=== PATIENT | female | born 1945 | race Caucasian/White ===

== ENCOUNTER 2020-04-01 10:54 | Outpatient (RCR) | payer SELFPAY | END 2020-04-01 23:59 | disposition home or self-care (01) | LOC: ANHAUDIO 10:54 | DX: Z46.1 Encounter for fitting and adjustment of hearing aid (principal) | CPT/HCPCS: V5014 ==

== ENCOUNTER 2020-11-29 11:45 | Emergency (ER) | payer MEDICARE, SELFPAY ==
--- NOTE | ~2020-11-29 | XR_ITS ---
EXAMINATION: XR foot RT min 3V DATE: 11/29/2020 13:06 INDICATION: Redness, swelling, and pain of the right foot TECHNIQUE: Dorsoplantar, lateral, and 2 oblique views of the right foot were obtained. COMPARISON: None. FINDINGS: There is soft tissue swelling of the foot near the fifth metatarsophalangeal joint. No frac ture is identified. 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 Bone alig nment is normal. IMPRESSION: 1. Soft tissue swelling near the fifth metatarsophalangeal joint without acute osseous abnormality id entified. Reviewed, dictated and finalized at location B. IMPRESSION: 1. Soft tissue swelling near the fifth metatarsophalangeal joint without acute osseous abnormality identified.
--- NOTE | ~2020-11-29 | US_ITS ---
EXAMINATION: US venous doppler LE RT DATE: 11/29/2020 15:35 INDICATION: Right lower limb pain. TECHNIQUE: Grayscale ultrasound images without and with compression and Doppler ultrasound images of the right lower extremity veins were obtained. COMPARISON: None. FINDINGS: The visualized portions of right common femoral vein, profunda (deep) femoral vein, femoral vein, pop liteal vein, peroneal veins, posterior tibial veins, and greater saphenous vein outflow are patent. IMPRESSION: 1. No deep venous thrombosis. Reviewed, dictated and finalized at location A.
[2020-11-29 12:30] VITALS: BP 177/74; PULSE 80; RESP 16; TEMP 36.7; O2SAT 98
--- NOTE | 2020-11-29 15:12 | PC.NURSE ---
PA at bedside for pt assessment.
[2020-11-29 15:25] VITALS: BP 166/77; PULSE 78; RESP 18; O2SAT 99
--- NOTE | 2020-11-29 15:27 | PC.NURSE ---
Pt going to ultrasound.
[2020-11-29 15:36] LABS: Basophils Percent Auto 0.1 % (0.2-1.2); Eosinophils Percent Auto 0.5 % (0-4.4); Hemoglobin 12.1 g/dL (12.0-15.0); Immature Granulocyte Absolute 0.03 K/mm3 (0.00-0.031); Immature Granulocyte Percent A 0.4 % (0-0.5); Lymphocytes Absolute Auto 1.38 K/mm3 (0.9-3.2); Lymphocytes Percent Auto 17.4 % (18.3-44.2); Mean Corpuscular HGB Conc 31.8 g/dl (32-36); Mean Corpuscular Hemoglobin 27.2 pg (26-34); Mean Corpuscular Volume 85.4 fl (80-100); Mean Platelet Volume 9.7 fl (7.4-10.4); Monocytes Absolute Auto 0.6 K/mm3 (0.1-0.6); Monocytes Percent Auto 6.9 % (2.6-8.5); Neutrophils Absolute Auto 5.9 K/mm3 (1.3-6.7); Neutrophils Percent Auto 74.7 % (45.5-73.1); Platelet Count Result 195 k/mm3 (150-375); Red Blood Count 4.45 M/mm3 (4.2-5.4); Red Cell Distribution Width 14.3 % (11.5-14.5); White Blood Count 7.9 K/mm3 (4.5-10.0)
[2020-11-29] MEDS: SODIUM CHLORIDE 0.9% IV 500 ML 999 ML IV CONT (15:50)
[2020-11-29 15:51] LABS: Anion Gap 7 mmol/L (8-16); Blood Urea Nitrogen 21 mg/dL (7-17); CRP 2.3 mg/dL (<1.0); Calcium 9.7 mg/dL (8.4-10.2); Carbon Dioxide 31 mmol/L (22-30); Chloride 101 mmol/L (98-107); Estimated Glomerular Filt Rate 49; Glucose 90 mg/dL (65-105); Potassium 3.9 mmol/L (3.4-5.0); Sodium 139 mmol/L (137-145); Uric Acid 6.9 mg/dL (2.5-7.5)
--- NOTE | 2020-11-29 16:08 | ED.GENADULT ---
HPI - General Adult General Chief complaint: Extremity Problem,Nontraumatic Stated complaint: r foot swelling Time Seen by Provider: 11/29/20 15:05 Source: patient and old records reviewed Mode of arrival: ambulatory Limitations: no limitations History of Present Illness HPI narrative: Patient is 75-year-old female who presents with redness and tenderness of the right midfoot that is been present for the last couple days denies injury or trauma or similar occurrence patient notes pain with even light touch denying injury. Presents in no distress has not taken anything for her symptoms Related Data Allergies Allergy/AdvReac Type Severity Reaction Status Date / Time NKA Allergy Unknown Other Uncoded 11/29/20 15:26 Review of Systems Review of Systems: All systems reviewed & are unremarkable except as noted in HPI and below PMFSH Past Medical History Medical History (Updated 11/29/20 @ 16:15 by Vasu Duke PA-C) Chronic kidney disease Diabetes mellitus Family History Family History (Updated 08/29/15 @ 15:59 by DOCTOR UNKNOWN) Mother Family history of malignant neoplasm of ovary Grandparent Diabetes mellitus Social History Social History Smoking status: Never smoker Second hand tobacco smoke exposure: No Alcohol intake: never Gender identity (if verbalized by the patient): Female Exam Narrative: Exam Narrative: GENERAL: Well-appearing, well-nourished, and in no acute distress. HEAD: Normocephalic, atraumatic. EYES: PERRLA and EOMI. ENT: Nares clear, no rhinorrhea or epistaxis. Mucous membranes moist. CHEST: Clear to auscultation. No respiratory distress. No wheezes rales or rhonchi HEART: Regular rate and rhythm. No murmur heard. Normal peripheral pulses. EXTREMITIES: Normal range of motion. Swelling with tenderness of the right midfoot laterally no other deformities noted remainder of extremity nontender no deformity SKIN: Warm, dry, no rash. NEURO: No focal deficits. Alert and oriented x3. Cranial nerves II through XII grossly intact. Neurovascularly intact. Capillary refill less than 2 seconds PSYCH: Normal mood and affect. Course Course Emergency Course: Patient evaluated in the emergency department for swelling and tenderness of the right foot will be discharged home with follow-up with podiatry and primary care will be placed on medication for pain as well as provided with reasons to return afebrile nontoxic-appearing no distress ABCs and vital signs intact and stable. Patient will also be covered for possible infection Vital Signs Vital signs: Vital Signs Temperature 98.1 F 11/29/20 12:30 Pulse Rate 80 11/29/20 12:30 Respiratory Rate 16 11/29/20 12:30 Blood Pressure 177/74 H 11/29/20 12:30 Pulse Oximetry 98 11/29/20 12:30 Temperature 98.1 F 11/29/20 12:30 Pulse Rate 78 11/29/20 15:25 Respiratory Rate 18 11/29/20 15:25 Blood Pressure 166/77 H 11/29/20 15:25 Pulse Oximetry 99 11/29/20 15:25 Medical Decision Making MDM Narrative Medical decision making narrative: Patients injury or pain is consistent with musculoskeletal etiology. No signs of neurological or vascular compromise on exam. Compartments and tisues are soft without signs of compartment syndrome. Pain is felt appropriate for further evaluation on an outpatient basis. Will be covered for inflammatory and infectious etiology given reasons to return Vital Signs Vital Signs: Vital Signs Temperature 98.1 F 11/29/20 12:30 Pulse Rate 80 11/29/20 12:30 Respiratory Rate 16 11/29/20 12:30 Blood Pressure 177/74 H 11/29/20 12:30 Pulse Oximetry 98 11/29/20 12:30 Temperature 98.1 F 11/29/20 12:30 Pulse Rate 78 11/29/20 15:25 Respiratory Rate 18 11/29/20 15:25 Blood Pressure 166/77 H 11/29/20 15:25 Pulse Oximetry 99 11/29/20 15:25 Lab Data Result diagrams: 11/29/20 15:27 11/29/20 15:2
[2020-11-29 16:09] LABS: Erythrocyte Sedimentation Rate 19 mm/hr (0-20)
== END 2020-11-29 17:17 | disposition home or self-care (01) ==
PROVIDERS: Emergency Medicine Emergency Medical Services; Emergency Provider Emergency Medicine; PCP Internal Medicine
DX: M79.671 Pain in right foot (principal); E11.22 Type 2 diabetes mellitus with diabetic chronic kidney disease; N18.9 Chronic kidney disease, unspecified
CPT/HCPCS: 36415; 73630; 80048; 84550; 85025; 85652; 86140; 93971; 96365; 99284; J0131; J7040

== ENCOUNTER 2024-09-01 11:52 | Outpatient (CLI) | payer MEDICARE, SELFPAY ==
--- NOTE | ~2024-09-01 | XR_ITS ---
XR shoulder LT min 2V Ordering provider: Laureano Bunch, History: . PAIN IN HUMERAL NECK, LIMITED ROM, CANNOT RAISE ARM, NO INJ . Comparison: None. FINDINGS: BONES: No acute fracture or dislocation. Degenerative changes in the area of the greater tuberosity. JOINT SPACES: The acromioclavicular joint is normal. The glenohumeral joint is normal. SOFT TISSUES: Normal. IMPRESSION: No acute osseous abnormality left shoulder. Degenerative changes in the greater tuberosity. Evaluation for gout rotator injury is advised. Reviewed, dictated and finalized at location A. [employer] IMPRESSION: No acute osseous abnormality left shoulder. Degenerative changes in the greater tuberosity. Evaluation for gout rotator inj ury is advised.
--- OUTSIDE RECORDS SUMMARY | 2024-09-07 06:42 | XMS_ITS | Encounter Summary ---
Author Organization [employer] [facility] Address [address] [place] [id number] Phone Care Team Providers Care Swatch Folder Name Role Phone Laureano Bunch MD Primary Care Provider [phone] Reason for Visit * Reason Comments Med Refill Encounter Details Date Type Department Care Team (Late Contact Info) Description 01/27/2021 Refill [facility] [employer] [address] [address] Thee Sebastian DO [address] [facility] 1 [place] [address] Social History Tobacco Use Types Packs/Day Years Used Date Smoking Tobacco: Never Alcohol Use Standard Drinks/Week Comments No 0 (1 standard drink = 0.6 oz pur e alcohol) Comments Unknown Sex and Gender Information Value Date Recorded Sex Assigned at Not on file Legal Sex Female 2:51 PM EDT Gender Identity Not on file Sexual Orientation Not on file documented as of this encounter Plan of Treatment Upcoming Encounters Date Type Department Care Team (Late Contact Info) Description 11/14/2024 2:15 PM CDT Office Visit [facility] [address] [facility] 15 [place] [address] Thee Sebastian DO [address] [facility] 1 [place] [address] documented as of this encounter Visit Diagnoses Not on filedocumented in this encounter Care Teams Swatch Folder Relationship Specialty Start Date End Date Laureano Bunch MD [address] [facility] [address] [place] [address] PCP - General Internal Medicine 02/15/24 documented as of this encounter
--- OUTSIDE RECORDS SUMMARY | 2024-09-07 06:42 | XMS_ITS | Encounter Summary ---
Author Organization [employer] [facility] Address [address] [place] [phone] Phone Care Team Providers Care Miner Operator Name Role Phone Laureano Bunch MD Primary Care Provider [phone] Reason for Visit * Reason Comments Med Refill Encounter Details Date Type Department Care Team (Late Contact Info) Description 03/13/2021 Refill [place] [facility] [employer] [address] [address] Thee Sebastian DO [address] [facility] 1 [place] [address] Social History Tobacco Use Types [...] Description 11/14/2024 2:15 PM CDT Office [email or web address] [address] [facility] [address] [place] [address] Thee Sebastian DO [address] [facility] 1 [place] [address] documented as of this encounter Visit Diagnoses Not on filedocumented in this encounter Care Teams Miner Operator Relationship Specialty Start Date End Date Laureano Bunch MD [address] [facility] [address] [place] [address] PCP - General Internal Medicine 02/15/24 documented as of this encounter
--- OUTSIDE RECORDS SUMMARY | 2024-09-07 06:42 | XMS_ITS | Data Portability ---
Author Organization [facility] Address [address] [place] [address] Care Team Providers Care Business Office Coordinator Name Role Phone ALAN MENDES Echo Technician JULIANE NICHOLS Primary Care Provider MICAH BUNCH Primary Care Provider Unavailabl e Assessment Encounter Date Assessment Date Assessment LastModified by Organization Details LastModified Time 12/07/2023 12/07/2023 Medications will be refilled we will continue current therapy her systolics little bit high today she would like to try to lose 5 to 10 pounds still going up on medication we will obtain blood work she did have an EKG done today that showed a normal sinus rhythm with normal intervals and no ST changes we will get blood work her TB test and once we get all that back we will fill her paperwork 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 Obtain DEXA. flu and COVID when become available we will not see Podiatry told to go see diabetic eye exam appointment follow up me 3 months Not available 04/11/2024 22:10:57 08/29/2024 08/29/2024 we will continue current therapy blood work has been ordered x-ray left and refer for physical therapy for left healthy lifestyle care instructions follow up 4 months [email or web address] Not available 08/31/2024 23:57:24 Plan of Treatment Reminders Order Date Submit Date Provider Last Modified By Organization Details Last Modified Time Details Appointments ANY 15 2024 03:15P Chato Bunch MD Not available Not available Not available Lab HbA1c (hemogl obin A1c), blood 2022 023 [facility], [address], [address], [place], [address], 11/05/2022 12:38:46 CMP, serum or plasma 2022 023 [facility], [address], [address], [place], [address], 10/28/2022 18:16:44 albumin /creati nine, mass ratio, urine 2022 023 [facility], [address], [address], [place], [address], 10/28/2022 18:16:29 HbA1c (hemogl obin A1c), blood 2023 024 [facility], [address], [address], [place], [address], 12/09/2023 19:08:46 tb (M tubercu shola), ifn-chun ma yemi, blood 2023 024 [facility], [address], [address], [place], [address], 12/10/2023 11:29:51 lipid panel, serum 2023 024 [facility], [address], [address], [place], [address], 12/09/2023 19:08:44 CMP, serum or plasma 2023 024 [facility], [address], [address], [place], [address], 12/09/2023 19:08:45 CBC w/ auto diff 2023 024 [facility], [address], [place], [address], 12/09/2023 19:08:46 MMR immunit y, serum 2023 024 [email or web address], [address], [address], [place], [address], 12/10/2023 11:29:46 HbA1c (hemogl obin A1c), blood 2023 024 [facility], [address], [address], [place], [address], 04/12/2024 11:16:50 CBC w/ auto diff 2023 024 [facility], [address] [facility] [address], [address], [place], [address], 04/12/2024 11:16:51 lipid panel, serum 2023 024 [facility], [address], [address], [place], [address], 04/12/2024 11:16:48 CMP, serum or plasma 2023 024 [facility], [address], [address], [place], [address], 04/12/2024 11:16:49 YASMINE (antinu clear antibod ies) screen, serum 2024 025 [facility], [address], [address], [place], [address], 08/30/2024 13:15:49 HbA1c (hemogl obin A1c), blood 2024 025 [facility], [address] [place], [place] [address], [address], [place], [address], 08/30/2024 13:15:53 albumin /creati nine, mass ratio, urine 2024 025 [facility], [address] [place] [address], [address], [place], [address], 08/30/2024 13:15:48 lipid panel, serum 2024 025 [facility], [address] [place] [address], [address], [place], [address], 08/30/2024 13:15:51 CMP, serum or plasma 2024 025 [facility], [address] [place] [address], [address], [place], [address], 08/30/2024 13:15:52 CBC w/ auto diff 2024 025 [facility], [address] [place] [address], [address], [place], [address], 08/30/2024 13:15:54 Referral diabeti c ophthal mology referra l - Please call patient for appoint ment thanks! 2022 023 [email or web address] Silviano Aldridge MD, [address] , [place], [address], 12/21/2022 09:55:[address]i st referra l 2024 025 [email or web address] [facility], [address] [facility], [place], [address], 08/29/2024 15:53:29 Procedures None recorde d. Surgeries None recorde d. Imaging electro cardiog saad 2023 024 [email or web address] In-Office Order, Internal Use Only DO Not Attach Compendium DO Not Attach Compendium, Do Not Delete/merge, [id number] 12/07/2023 16:28:54 MAMMO, screeni ng, digital , bilater al 2023 024 [facility] ([facility]), [address] [place], [address], 05/19/2024 17:23:44 bone density 2023 024 [facility] ([facility]), [address] [place], [address], 05/19/2024 17:49:03 XR, shoulde r, 2 or more view 2024 025 [facility] (Imaging), [address] [place] [address], [address], 09/01/2024 16:09:43 Medication Orders omepraz ole 20 mg capsule ,delaye d release 2022 023 [facility] [id number], [address], [place], [address], 12/07/2023 14:23:31 Jardian ce 10 mg tablet 2022 023 [email or web address] [facility]acy #[id number], [address], [place], [address], 04/11/2024 22:08:32 metform in 500 mg tablet [address] [facility]/Pharmacy #[id number], [address], [place], [address], 10/28/2022 18:16:34 carvedi lol 12.5 mg tablet 2022 023 [id number], [address], [place], [address], 10/28/2022 18:16:33 chlorth alidone 25 mg tablet 2022 023 [id number], [address], [place], [address], 04/11/2024 15:20:06 lisinop ril 40 mg tablet 2022 023 [id number], [address] [place], [address], 10/28/2022 18:16:35 atorvas tatin 40 mg tablet 2022 023 [id number], [address] [place], [address], 10/28/2022 18:16:35 omepraz ole 20 mg capsule ,delaye d release 2022 023 [id number] [address] [place], [address], 12/07/2023 14:23:31 metform in 500 mg tablet 2022 023 [id number], [address] [place], [address], 08/03/2023 14:04:05 Jardian ce 10 mg tablet 2022 023 [id number], [address] [place], [address], 04/11/2024 22:08:34 famotid ine 20 mg tablet 2022 023 [id number], [address] [place], [address], 08/03/2023 14:04:05 lisinop ril 40 mg tablet 2022 023 [id number], [address], [place], [address], 08/03/2023 14:04:06 chlorth alidone 25 mg tablet 2022 024 [id number], [address], [place], [address], 04/11/2024 15:21:29 carvedi lol 12.5 mg tablet 2022 023 [id number], [address], [place], [address], 08/03/2023 14:04:05 atorvas tatin 40 mg tablet 2022 023 [id number], [address], [place], [address], 08/03/2023 14:04:05 Patient TargetsNo targets recorded. Patient Instructions Encounter Date Encounter Id Patient Instructions Last Modified By Organization Details Last Modified Time 10/28/2022 [id number] learning about type 2 diabetes [facility] Not available 10/28/2022 18:16:26 type 2 diabetes: care instructions [facility] Not available 10/28/2022 18:16:26 learning about high blood pressure [facility] Not available 10/28/2022 18:16:26 08/03/2023 [id number] osteoarthritis: care instructions [email or web address] Not available 08/03/2023 14:04:00 learning about type 2 diabetes [facility] Not available 08/03/2023 14:03:59 type 2 diabetes: care instructions [facility] Not available 08/03/2023 14:04:00 learning about high blood pressure [facility] Not available 08/03/2023 14:03:59 08/29/2024 [id number] A healthy lifestyle: care instructions [email or web address] Not available 08/29/2024 15:53:29 Reason for Referral Diabetic Ophthalmology Refer ral for Type 2 diabetes mellitus Please call patient for appointment thanks! Referring Physician: Juliane Nichols, Internal Medicine, Encounter Date: 10/28/2022 Physical Therapist Referral for Pain of left shoulder joint Referring Physician: Micah Bunch, Internal Medicine, Encounter Date: 08/29/2024 Results Created Date Observation Date Name Description Value Unit Range Abnormal Flag Note LastModifiedBy Organization Detail LastModifiedTime 12/07/19 24 12/08/2023 QUANT IFERO N-TB GOLD PLUS quantiferon incubation Incuba tion perfor med. Not Available [facility] ([facility]) [address] [facility], [place], [address], 12/09/2023 19:08:44 12/07/19 24 12/08/2023 QUANT IFERO N-TB GOLD PLUS quantiferon criteria Commen t Quant iFERO N-TB Gold Plus is a quali tativ e indir ect test for M tuber culos is infec tion (incl uding disea se) and is inten ded for use in conju nctio n with risk asses sment , radio graph y, and other medic al and diagn ostic evalu ation s. The Quant iFERO N-TB Gold Plus resul t is deter mined by subtr actin g the Nil value from eithe r TB antig en (Ag) value . The Mitog en tube serve s as a contr ol for the test. Not Available [facility] ([facility]) [address] [facility], [place], [address], 12/09/2023 19:08:44 12/07/19 24 12/09/2023 QUANT IFERO N-TB GOLD PLUS quantiferon- TB gold plus Negati ve negati ve No respo nse to M tuber culos is antig ens detec narda. Infec tion with M tuber culos is is unlik isaias, but high risk indiv idual s shoul d be consi dered for addit ional testi ng (ATS/ IDSA/ CDC Clini cristina Pract ice Guide lines , 2017) . The refer ence range is an Antig en minus Nil resul t of <0.35 IU/mL . Chemi lumin escen ce immun oassa y metho dolog y Not Available [facility] ([facility]) [address] [place], [address], 12/09/2023 19:08:44 12/07/19 24 12/09/2023 QUANT IFERO N-TB GOLD PLUS quantiferon TB1 Ag value 0.06 IU/mL Not Available [facility] ([facility]) [address] [place], [address], 12/09/2023 19:08:44 12/07/19 24 12/09/2023 QUANT IFERO N-TB GOLD PLUS quantiferon TB2 Ag value 0.07 IU/mL Not Available [facility] ([facility]) [address] [place], [address], 12/09/2023 19:08:44 12/07/19 24 12/09/2023 QUANT IFERO N-TB GOLD PLUS quantiferon nil value 0.05 IU/mL Not Available [facility] ([facility]) [address] [place], [address], 12/09/2023 19:08:44 12/07/19 24 12/09/2023 QUANT IFERO N-TB GOLD PLUS quantiferon mitogen value >10.00 IU/mL Not Available [facility] ([facility]) [address] [place], [address], 12/09/2023 19:08:44 12/07/19 24 12/08/2023 LIPID PANEL cholesterol, total 117 mg/dL 100-19 9 Not Available [facility] ([facility]) [address] [place], [address], 12/09/2023 19:08:44 12/07/19 24 12/08/2023 LIPID PANEL triglyceride s 130 mg/dL 0-149 Not Available [facility] ([facility]) [address] [place], [address], 12/09/2023 19:08:44 12/07/19 24 12/08/2023 LIPID PANEL HDL cholesterol 41 mg/dL >39 Not Available [facility]) [address] [place], [address], 12/09/2023 19:08:44 12/07/19 24 12/08/2023 LIPID PANEL VLDL cholesterol cristina 23 mg/dL 5-40 Not Available [facility] ([facility]) [address] [place], [address], 12/09/2023 19:08:44 12/07/19 24 12/08/2023 LIPID PANEL LDL chol calc ([facility]) 53 mg/dL 0-99 Not Available [facility]) [address] [place], [address], 12/09/2023 19:08:44 12/07/19 24 12/08/2023 COMP. METAB OLIC PANEL (14) glucose 116 mg/dL 70-99 above high normal Not Available [facility] ([facility]) [address] [place], [address], 12/09/2023 19:08:45 12/07/19 24 12/08/2023 COMP. METAB OLIC PANEL (14) BUN 30 mg/dL 8-27 above high normal Not Available [facility] ([facility]) [address] [place], [address], 12/09/2023 19:08:45 12/07/19 24 12/08/2023 COMP. METAB OLIC PANEL (14) creatinine 1.18 mg/dL 0.57-1 .00 above high normal Not Available [facility] ([facility]) [address] [place], [address], 12/09/2023 19:08:45 12/07/19 24 12/08/2023 COMP. METAB OLIC PANEL (14) eGFR 48 mL/mi n/1.7 3 >59 below low normal Not Available [facility] ([facility]) [address] [facility], [place], [address], 12/09/2023 19:08:45 12/07/19 24 12/08/2023 COMP. METAB OLIC PANEL (14) BUN/creatini ne ratio 09 08- Not Available [facility] ([facility]) [address] [place], [address], 12/09/2023 19:08:45 12/07/19 24 12/08/2023 COMP. METAB OLIC PANEL (14) sodium 141 mmol/ L 134-14 4 Not Available [facility] ([facility]) [address] [facility], [place], [address], 12/09/2023 19:08:45 12/07/19 24 12/08/2023 COMP. METAB OLIC PANEL (14) potassium 4.7 mmol/ L 3.5-5. 2 Not Available [facility] ([facility]) [address] [facility], [place], [address], 12/09/2023 19:08:45 12/07/19 24 12/08/2023 COMP. METAB OLIC PANEL (14) chloride 103 mmol/ L 96-106 Not Available [facility] ([facility]) [address] [place], [address], 12/09/2023 19:08:45 12/07/19 24 12/08/2023 COMP. METAB OLIC PANEL (14) carbon dioxide, total 24 mmol/ L 20-29 Not Available [facility] ([facility]) [address] [place], [address], 12/09/2023 19:08:45 12/07/19 24 12/08/2023 COMP. METAB OLIC PANEL (14) calcium 9.8 mg/dL 8.7-10 .3 Not Available [facility] ([facility]) [address] [facility], [place], [address], 12/09/2023 19:08:45 12/07/19 24 12/08/2023 COMP. METAB OLIC PANEL (14) protein, total 6.7 g/dL 6.0-8. 5 Not Available [facility] ([facility]) [address] [facility], [place], [address], 12/09/2023 19:08:45 12/07/19 24 12/08/2023 COMP. METAB OLIC PANEL (14) albumin 4.3 g/dL 3.8-4. 8 Not Available [facility] ([facility]) [address] [facility], [place], [address], 12/09/2023 19:08:45 12/07/19 24 12/08/2023 COMP. METAB OLIC PANEL (14) globulin, total 2.4 g/dL 1.5-4. 5 Not Available [facility] ([facility]) [address] [facility], [place], [address], 12/09/2023 19:08:45 12/07/19 24 12/08/2023 COMP. METAB OLIC PANEL (14) A/G ratio 1.8 1.2-2. 2 Not Available [facility] ([facility]) [address] [facility], [place], [address], 12/09/2023 19:08:45 12/07/19 24 12/08/2023 COMP. METAB OLIC PANEL (14) bilirubin, total 0.4 mg/dL 0.0-1. 2 Not Available [facility] ([facility]) [address] [facility] [place], [address], 12/09/2023 19:08:45 12/07/19 24 12/08/2023 COMP. METAB OLIC PANEL (14) alkaline phosphatase 81 IU/L 44-121 Not Available [facility] [address] [facility] [place], [address], 12/09/2023 19:08:45 12/07/19 24 12/08/2023 COMP. METAB OLIC PANEL (14) AST (SGOT) 22 IU/L 0-40 Not Available [facility] ([facility]) [address] [facility], [place], [address], 12/09/2023 19:08:45 12/07/19 24 12/08/2023 COMP. METAB OLIC PANEL (14) ALT (SGPT) 14 IU/L 0-32 Not Available [facility] ([facility]) [address] [facility], [place], [address], 12/09/2023 19:08:45 12/07/19 24 12/08/2023 HEMOG LOBIN A1C hemoglobin A1C 5.9 % 4.8-5. 6 above high normal Predi abete s: 5.7 - 6.4 Diabe lupe: >6.4 Glyce janel contr ol for adult s with diabe lupe: <7.0 Not Available [facility] ([facility]) [address] [facility], [place], [address], 12/09/2023 19:08:46 12/07/19 24 12/08/2023 CBC WITH DIFFE RENTI AL/PL ATELE T WBC 5.8 x10e3 /uL 3.4-10 .8 Not Available [facility] ([facility]) [address] [place], [address], 12/09/2023 19:08:46 12/07/19 24 12/08/2023 CBC WITH DIFFE RENTI AL/PL ATELE T RBC 4.70 x10e6 /uL 3.77-5 .28 Not Available [facility] ([facility]) [address] [place], [address], 12/09/2023 19:08:46 12/07/19 24 12/08/2023 CBC WITH DIFFE RENTI AL/PL ATELE T hemoglobin 13.4 g/dL 11.1-1 5.9 Not Available [facility] ([facility]) [address] [facility], [place], [address], 12/09/2023 19:08:46 12/07/19 24 12/08/2023 CBC WITH DIFFE RENTI AL/PL ATELE T hematocrit 40.9 % 34.0-4 6.6 Not Available [facility] ([facility]) [address] [facility], [place], [address], 12/09/2023 19:08:46 12/07/19 24 12/08/2023 CBC WITH DIFFE RENTI AL/PL ATELE T MCV 87 fL 79-97 Not Available [facility] ([facility]) [address] [facility], [place], [address], 12/09/2023 19:08:46 12/07/19 24 12/08/2023 CBC WITH DIFFE RENTI AL/PL ATELE T MCH 28.5 pg 26.6-3 3.0 Not Available [facility] ([facility]) [address] [facility], [place], [address], 12/09/2023 19:08:46 12/07/19 24 12/08/2023 CBC WITH DIFFE RENTI AL/PL ATELE T MCHC 32.8 g/dL 31.5-3 5.7 Not Available [facility] ([facility]) [address] [facility], [place], [address], 12/09/2023 19:08:46 12/07/19 24 12/08/2023 CBC WITH DIFFE RENTI AL/PL ATELE T RDW 13.3 % 11.7-1 5.4 Not Available [facility] ([facility]) [address] [place], [address], 12/09/2023 19:08:46 12/07/19 24 12/08/2023 CBC WITH DIFFE RENTI AL/PL ATELE T platelets 197 x10e3 /uL 150-45 0 Not Available [facility] ([facility]) [address] [facility], [place], [address], 12/09/2023 19:08:46 12/07/19 24 12/08/2023 CBC WITH DIFFE RENTI AL/PL ATELE T neutrophils 76 % notest ab. Not Available [facility] ([facility]) [address] [facility], [place], [address], 12/09/2023 19:08:46 12/07/19 24 12/08/2023 CBC WITH DIFFE RENTI AL/PL ATELE T lymphs 17 % notest ab. Not Available [facility] ([facility]) [address] [facility], [place], [address], 12/09/2023 19:08:46 12/07/19 24 12/08/2023 CBC WITH DIFFE RENTI AL/PL ATELE T monocytes 6 % notest ab. Not Available [facility] ([facility]) [address] [facility], [place], [address], 12/09/2023 19:08:46 12/07/19 24 12/08/2023 CBC WITH DIFFE RENTI AL/PL ATELE T eos 1 % notest ab. Not Available [facility] ([facility]) [address] [facility], [place], [address], 12/09/2023 19:08:46 12/07/19 24 12/08/2023 CBC WITH DIFFE RENTI AL/PL ATELE T basos 0 % notest ab. Not Available [facility] ([facility]) [address] [facility], [place], [address], 12/09/2023 19:08:46 12/07/19 24 12/08/2023 CBC WITH DIFFE RENTI AL/PL ATELE T neutrophils (absolute) 4.4 x10e3 /uL 1.4-7. 0 Not Available [facility] ([facility]) [address] [facility], [place], [address], 12/09/2023 19:08:46 12/07/19 24 12/08/2023 CBC WITH DIFFE RENTI AL/PL ATELE T lymphs (absolute) 1.0 x10e3 /uL 0.7-3. 1 Not Available [facility] ([facility]) [address] [facility], [place], [address], 12/09/2023 19:08:46 12/07/19 24 12/08/2023 CBC WITH DIFFE RENTI AL/PL ATELE T monocytes(ab solute) 0.4 x10e3 /uL 0.1-0. 9 Not Available [facility] ([facility]) [address] [facility], [place], [address], 12/09/2023 19:08:46 12/07/19 24 12/08/2023 CBC WITH DIFFE RENTI AL/PL ATELE T eos (absolute) 0.1 x10e3 /uL 0.0-0. 4 Not Available [facility] ([facility]) [address] [place], [address], 12/09/2023 19:08:46 12/07/19 24 12/08/2023 CBC WITH DIFFE RENTI AL/PL ATELE T baso (absolute) 0.0 x10e3 /uL 0.0-0. 2 Not Available [facility] ([facility]) [address] [facility], [place], [address], 12/09/2023 19:08:46 12/07/19 24 12/08/2023 CBC WITH DIFFE RENTI AL/PL ATELE T immature granulocytes 0 % notest ab. Not Available [facility] ([facility]) [address] [place], [address], 12/09/2023 19:08:46 12/07/19 24 12/08/2023 CBC WITH DIFFE RENTI AL/PL ATELE T immature grans (abs) 0.0 x10e3 /uL 0.0-0. 1 Not Available [facility] ([facility]) [address] [facility], [place], [address], 12/09/2023 19:08:46 12/07/19 24 12/08/2023 MEASL ES/MU MPS/R UBELL A IMMUN ITY rubella antibodies, IgG 7.30 index immune >0.99 Non-i mmune <0.90 Equiv ocal 0.90 - 0.99 Immun e >0.99 Not Available [facility] ([facility]) [address] [facility], [place], [address], 12/09/2023 19:08:47 12/07/1912/08/2023 MEASL ES/MU MPS/R UBELL A IMMUN ITY measles antibodies, IgG >300.0 AU/mL immune >16.4 Negat kimberly <13.5 Equiv ocal 13.5 - 16.4 Posit kimberly >16.4 Prese nce of antib odies to Rubeo la is presu mptiv e evide nce of immun ity excep t when acute infec tion is suspe cted. Not Available [facility] ([facility]) [address] [facility], [place], [address], 12/09/2023 19:08:47 12/07/19 24 12/08/2023 MEASL ES/MU MPS/R UBELL A IMMUN ITY mumps abs, IgG 121.0 AU/mL immune >10.9 Negat kimberly <9.0 Equiv ocal 9.0 - 10.9 Posit kimberly >10.9 A posit kimberly resul t gener ally indic ates past expos ure to Mumps virus or previ ous vacci natio n. Not Available [facility] ([facility]) [address] [facility], [place], [address], 12/09/2023 19:08:47 04/11/20 24 04/12/2024 LIPID PANEL cholesterol, total 115 mg/dL 100-19 9 Not Available [facility] ([facility]) [address] [facility] [place], [address], 04/12/2024 11:16:48 04/11/20 24 04/12/2024 LIPID PANEL triglyceride s 137 mg/dL 0-149 Not Available [facility] ([facility]) [address] [place], [address], 04/12/2024 11:16:48 04/11/20 24 04/12/2024 LIPID PANEL HDL cholesterol 37 mg/dL >39 below low normal Not Available [facility] ([facility]) [address] [place], [address], 04/12/2024 11:16:48 04/11/20 24 04/12/2024 LIPID PANEL VLDL cholesterol cristina 24 mg/dL 5-40 Not Available [facility] ([facility]) [address] [place], [address], 04/12/2024 11:16:48 04/11/20 24 04/12/2024 LIPID PANEL LDL chol calc ([facility]) 54 mg/dL 0-99 Not Available [facility] ([facility] [address] [place], [address], 04/12/2024 11:16:48 04/11/20 24 04/12/2024 COMP. METAB OLIC PANEL (14) glucose 86 mg/dL 70-99 Not Available [facility] ([facility]) [address] [place], [address], 04/12/2024 11:16:49 04/11/20 24 04/12/2024 COMP. METAB OLIC PANEL (14) BUN 39 mg/dL 8-27 above high normal Not Available [facility] ([facility]) [address] [place], [address], 04/12/2024 11:16:49 04/11/20 24 04/12/2024 COMP. METAB OLIC PANEL (14) creatinine 1.43 mg/dL 0.57-1 .00 above high normal Not Available [facility] ([facility]) [address] [facility] [place], [address], 04/12/2024 11:16:49 04/11/20 24 04/12/2024 COMP. METAB OLIC PANEL (14) eGFR 38 mL/mi n/1.7 3 >59 below low normal Not Available [facility] ([facility]) [address] [facility] [place], [address], 04/12/2024 11:16:49 04/11/20 24 04/12/2024 COMP. METAB OLIC PANEL (14) BUN/creatini ne ratio 11 08- Not Available [facility] ([facility]) [address] [facility] [place], [address], 04/12/2024 11:16:49 04/11/20 24 04/12/2024 COMP. METAB OLIC PANEL (14) sodium 142 mmol/ L 134-14 4 Not Available [facility] ([facility]) [address] [facility] [place], [address], 04/12/2024 11:16:49 04/11/20 24 04/12/2024 COMP. METAB OLIC PANEL (14) potassium 5.6 mmol/ L 3.5-5. 2 above high normal Not Available [facility] ([facility]) [address] [facility] [place], [address], 04/12/2024 11:16:49 04/11/20 24 04/12/2024 COMP. METAB OLIC PANEL (14) chloride 106 mmol/ L 96-106 Not Available [facility] ([facility]) [address] [facility] [place], [address], 04/12/2024 11:16:49 04/11/20 24 04/12/2024 COMP. METAB OLIC PANEL (14) carbon dioxide, total 25 mmol/ L 20-29 Not Available [facility] ([facility]) [address] [place], [address], 04/12/2024 11:16:49 04/11/20 24 04/12/2024 COMP. METAB OLIC PANEL (14) calcium 9.7 mg/dL 8.7-10 .3 Not Available [facility] ([facility]) [address] [place], [address], 04/12/2024 11:16:49 04/11/20 24 04/12/2024 COMP. METAB OLIC PANEL (14) protein, total 6.6 g/dL 6.0-8. 5 Not Available [facility] ([facility]) [address] [facility] [place], [address], 04/12/2024 11:16:49 04/11/20 24 04/12/2024 COMP. METAB OLIC PANEL (14) albumin 4.2 g/dL 3.8-4. 8 Not Available [facility] ([facility]) [address] [facility] [place], [address], 04/12/2024 11:16:49 04/11/20 24 04/12/2024 COMP. METAB OLIC PANEL (14) globulin, total 2.4 g/dL 1.5-4. 5 Not Available [facility] ([facility]) [address] [facility] [place], [address], 04/12/2024 11:16:49 04/11/20 24 04/12/2024 COMP. METAB OLIC PANEL (14) bilirubin, total 0.4 mg/dL 0.0-1. 2 Not Available [facility] ([facility]) [address] [facility] [place], [address], 04/12/2024 11:16:49 04/11/20 24 04/12/2024 COMP. METAB OLIC PANEL (14) alkaline phosphatase 82 IU/L 44-121 Not Available [facility] ([facility]) [address] [facility] [place], [address], 04/12/2024 11:16:49 04/11/20 24 04/12/2024 COMP. METAB OLIC PANEL (14) AST (SGOT) 19 IU/L 0-40 Not Available [facility] ([facility]) [address] [facility], [place], [address], 04/12/2024 11:16:49 04/11/20 24 04/12/2024 COMP. METAB OLIC PANEL (14) ALT (SGPT) 11 IU/L 0-32 Not Available [facility] ([facility]) [address] [facility], [place], [address], 04/12/2024 11:16:49 04/11/20 24 04/12/2024 HEMOG LOBIN A1C hemoglobin A1C 5.7 % 4.8-5. 6 above high normal Predi abete s: 5.7 - 6.4 Diabe lupe: >6.4 Glyce janel contr ol for adult s with diabe lupe: <7.0 Not Available [facility] ([facility]) [address] [facility], [place], [address], 04/12/2024 11:16:50 04/11/20 24 04/12/2024 CBC WITH DIFFE RENTI AL/PL ATELE T WBC 5.2 x10e3 /uL 3.4-10 .8 Not Available [facility] ([facility]) [address] [facility], [place], [address], 04/12/2024 11:16:51 04/11/20 24 04/12/2024 CBC WITH DIFFE RENTI AL/PL ATELE T RBC 4.40 x10e6 /uL 3.77-5 .28 Not Available [facility] ([facility]) [address] [place], [address], 04/12/2024 11:16:51 04/11/20 24 04/12/2024 CBC WITH DIFFE RENTI AL/PL ATELE T hemoglobin 12.7 g/dL 11.1-1 5.9 Not Available [facility] ([facility]) [address] [facility], [place], [address], 04/12/2024 11:16:51 04/11/20 24 04/12/2024 CBC WITH DIFFE RENTI AL/PL ATELE T hematocrit 39.6 % 34.0-4 6.6 Not Available [facility] ([facility]) [address] [facility], [place], [address], 04/12/2024 11:16:51 04/11/20 24 04/12/2024 CBC WITH DIFFE RENTI AL/PL ATELE T MCV 90 fL 79-97 Not Available [facility] ([facility]) [address] [facility], [place], [address], 04/12/2024 11:16:51 04/11/20 24 04/12/2024 CBC WITH DIFFE RENTI AL/PL ATELE T MCH 28.9 pg 26.6-3 3.0 Not Available [facility] ([facility]) [address] [facility], [place], [address], 04/12/2024 11:16:51 04/11/20 24 04/12/2024 CBC WITH DIFFE RENTI AL/PL ATELE T MCHC 32.1 g/dL 31.5-3 5.7 Not Available [facility] ([facility]) [address] [facility], [place], [address], 04/12/2024 11:16:51 04/11/20 24 04/12/2024 CBC WITH DIFFE RENTI AL/PL ATELE T RDW 12.8 % 11.7-1 5.4 Not Available [facility] ([facility]) [address] [facility], [place], [address], 04/12/2024 11:16:51 04/11/20 24 04/12/2024 CBC WITH DIFFE RENTI AL/PL ATELE T platelets 189 x10e3 /uL 150-45 0 Not Available [facility] ([facility]) [address] [facility], [place], [address], 04/12/2024 11:16:51 04/11/20 24 04/12/2024 CBC WITH DIFFE RENTI AL/PL ATELE T neutrophils 67 % notest ab. Not Available [facility] ([facility]) [address] [facility], [place], [address], 04/12/2024 11:16:51 04/11/20 24 04/12/2024 CBC WITH DIFFE RENTI AL/PL ATELE T lymphs 25 % notest ab. Not Available [facility] ([facility]) [address] [facility], [place], [address], 04/12/2024 11:16:51 04/11/20 24 04/12/2024 CBC WITH DIFFE RENTI AL/PL ATELE T monocytes 6 % notest ab. Not Available [facility] ([facility]) [address] [facility], [place], [address], 04/12/2024 11:16:51 04/11/20 24 04/12/2024 CBC WITH DIFFE RENTI AL/PL ATELE T eos 1 % notest ab. Not Available [facility] ([facility]) [address] [facility], [place], [address], 04/12/2024 11:16:51 04/11/20 24 04/12/2024 CBC WITH DIFFE RENTI AL/PL ATELE T basos 1 % notest ab. Not Available [facility] ([facility]) [address] [facility], [place], [address], 04/12/2024 11:16:51 04/11/20 24 04/12/2024 CBC WITH DIFFE RENTI AL/PL ATELE T neutrophils (absolute) 3.5 x10e3 /uL 1.4-7. 0 Not Available [facility] ([facility]) [address] [facility], [place], [address], 04/12/2024 11:16:51 04/11/20 24 04/12/2024 CBC WITH DIFFE RENTI AL/PL ATELE T lymphs (absolute) 1.3 x10e3 /uL 0.7-3. 1 Not Available [facility] ([facility]) [address] [facility], [place], [address], 04/12/2024 11:16:51 04/11/20 24 04/12/2024 CBC WITH DIFFE RENTI AL/PL ATELE T monocytes(ab solute) 0.3 x10e3 /uL 0.1-0. 9 Not Available [facility] ([facility]) [address] [facility], [place], [address], 04/12/2024 11:16:51 04/11/20 24 04/12/2024 CBC WITH DIFFE RENTI AL/PL ATELE T eos (absolute) 0.1 x10e3 /uL 0.0-0. 4 Not Available [facility] ([facility]) [address] [facility], [place], [address], 04/12/2024 11:16:51 04/11/20 24 04/12/2024 CBC WITH DIFFE RENTI AL/PL ATELE T baso (absolute) 0.0 x10e3 /uL 0.0-0. 2 Not Available [facility] ([facility]) [address] [facility], [place], [address], 04/12/2024 11:16:51 04/11/20 24 04/12/2024 CBC WITH DIFFE RENTI AL/PL ATELE T immature granulocytes 0 % notest ab. Not Available [facility] ([facility]) [address] [facility], [place], [address], 04/12/2024 11:16:51 04/11/20 24 04/12/2024 CBC WITH DIFFE RENTI AL/PL ATELE T immature grans (abs) 0.0 x10e3 /uL 0.0-0. 1 Not Available [facility] ([facility]) [address] [facility] [place], [address], 04/12/2024 11:16:51 08/29/19 25 08/30/2024 ALBUM IN/CR EATIN INE RATIO ,URIN E creatinine, urine 70.8 mg/dL notest ab. Not Available [facility] ([facility]) [address] [facility] [place], [address], 08/30/2024 13:15:48 08/29/19 25 08/30/2024 ALBUM IN/CR EATIN INE RATIO ,URIN E albumin, urine <3.0 ug/mL notest ab. Not Available [facility] ([facility]) [address] [place], [address], 08/30/2024 13:15:48 08/29/19 25 08/30/2024 ALBUM IN/CR EATIN INE RATIO ,URIN E alb/creat ratio <4 Jessica l: 0 - 29 Moder ately incre ased: 30 - 300 Sever isaias incre ased: >300 Not Available [facility] ([facility]) [address] [place], [address], 08/30/2024 13:15:48 08/29/19 25 08/30/2024 YASMINE W/REF MOISES YASMINE direct NEGATI VE negati ve Not Available [facility] ([facility]) [address] [place], [address], 08/30/2024 13:15:49 08/29/19 25 08/30/2024 LIPID PANEL cholesterol, total 117 mg/dL 100-19 9 Not Available [facility] ([facility]) [address] [place], [address], 08/30/2024 13:15:50 08/29/19 25 08/30/2024 LIPID PANEL triglyceride s 152 mg/dL 0-149 above high normal Not Available [facility] ([facility]) [address] [facility] [place], [address], 08/30/2024 13:15:50 08/29/19 25 08/30/2024 LIPID PANEL HDL cholesterol 41 mg/dL >39 Not Available [facility] ([facility]) [address] [facility], [place], [address], 08/30/2024 13:15:50 08/29/19 25 08/30/2024 LIPID PANEL VLDL cholesterol cristina 26 mg/dL 5-40 Not Available [facility] ([facility]) [address] [facility], [place], [address], 08/30/2024 13:15:50 08/29/19 25 08/30/2024 LIPID PANEL LDL chol calc ([facility]) 50 mg/dL 0-99 Not Available [facility] ([facility]) [address] [place], [address], 08/30/2024 13:15:50 08/29/19 25 08/30/2024 COMP. METAB OLIC PANEL (14) glucose 166 mg/dL 70-99 above high normal Not Available [facility] ([facility]) [address] [place], [address], 08/30/2024 13:15:52 08/29/19 25 08/30/2024 COMP. METAB OLIC PANEL (14) BUN 35 mg/dL 8-27 above high normal Not Available [facility] ([facility]) [address] [place], [address], 08/30/2024 13:15:52 08/29/19 25 08/30/2024 COMP. METAB OLIC PANEL (14) creatinine 1.39 mg/dL 0.57-1 .00 above high normal Not Available [facility] ([facility]) [address] [place], [address], 08/30/2024 13:15:52 08/29/19 25 08/30/2024 COMP. METAB OLIC PANEL (14) eGFR 39 mL/mi n/1.7 3 >59 below low normal Not Available [facility] ([facility]) [address] [facility] [place], [address], 08/30/2024 13:15:52 08/29/19 25 08/30/2024 COMP. METAB OLIC PANEL (14) BUN/creatini ne ratio 25 12-28 Not Available [facility] ([facility]) [address] [facility] [place], [address], 08/30/2024 13:15:52 08/29/19 25 08/30/2024 COMP. METAB OLIC PANEL (14) sodium 143 mmol/ L 134-14 4 Not Available [facility] ([facility]) [address] [facility] [place], [address], 08/30/2024 13:15:52 08/29/19 25 08/30/2024 COMP. METAB OLIC PANEL (14) potassium 5.2 mmol/ L 3.5-5. 2 Not Available [facility] ([facility]) [address] [facility] [place], [address], 08/30/2024 13:15:52 08/29/19 25 08/30/2024 COMP. METAB OLIC PANEL (14) chloride 105 mmol/ L 96-106 Not Available [facility] ([facility]) [address] [facility] [place], [address], 08/30/2024 13:15:52 08/29/19 25 08/30/2024 COMP. METAB OLIC PANEL (14) carbon dioxide, total 25 mmol/ L 20-29 Not Available [facility] ([facility]) [address] [facility] [place], [address], 08/30/2024 13:15:52 08/29/19 25 08/30/2024 COMP. METAB OLIC PANEL (14) calcium 9.4 mg/dL 8.7-10 .3 Not Available [facility] ([facility]) [address] [place], [address], 08/30/2024 13:15:52 08/29/19 25 08/30/2024 COMP. METAB OLIC PANEL (14) protein, total 6.5 g/dL 6.0-8. 5 Not Available [facility] ([facility]) [address] [place], [address], 08/30/2024 13:15:52 08/29/19 25 08/30/2024 COMP. METAB OLIC PANEL (14) albumin 4.3 g/dL 3.8-4. 8 Not Available [facility] ([facility]) [address] [place], [address], 08/30/2024 13:15:52 08/29/19 25 08/30/2024 COMP. METAB OLIC PANEL (14) globulin, total 2.2 g/dL 1.5-4. 5 Not Available [facility] ([facility]) [address] [place], [address], 08/30/2024 13:15:52 08/29/19 25 08/30/2024 COMP. METAB OLIC PANEL (14) bilirubin, total 0.4 mg/dL 0.0-1. 2 Not Available [facility] ([facility]) [address] [place], [address], 08/30/2024 13:15:52 08/29/19 25 08/30/2024 COMP. METAB OLIC PANEL (14) alkaline phosphatase 97 IU/L 44-121 Not Available [facility] ([facility]) [address] [place], [address], 08/30/2024 13:15:52 08/29/19 25 08/30/2024 COMP. METAB OLIC PANEL (14) AST (SGOT) 20 IU/L 0-40 Not Available [facility] ([facility]) [address] [place], [address], 08/30/2024 13:15:52 08/29/19 25 08/30/2024 COMP. METAB OLIC PANEL (14) ALT (SGPT) 11 IU/L 0-32 Not Available [facility] ([facility]) [address] [facility], [place], [address], 08/30/2024 13:15:52 08/29/19 25 08/30/2024 HEMOG LOBIN A1C hemoglobin A1C 5.8 % 4.8-5. 6 above high normal Predi abete s: 5.7 - 6.4 Diabe lupe: >6.4 Glyce janel contr ol for adult s with diabe lupe: <7.0 Not Available [facility] ([facility]) [address] [facility], [place], [address], 08/30/2024 13:15:53 08/29/19 25 08/30/2024 CBC WITH DIFFE RENTI AL/PL ATELE T WBC 5.4 x10e3 /uL 3.4-10 .8 Not Available [facility] ([facility]) [address] [facility], [place], [address], 08/30/2024 13:15:54 08/29/19 25 08/30/2024 CBC WITH DIFFE RENTI AL/PL ATELE T RBC 4.64 x10e6 /uL 3.77-5 .28 Not Available [facility] ([facility]) [address] [facility], [place], [address], 08/30/2024 13:15:54 08/29/19 25 08/30/2024 CBC WITH DIFFE RENTI AL/PL ATELE T hemoglobin 13.2 g/dL 11.1-1 5.9 Not Available [facility] ([facility]) [address] [facility], [place], [address], 08/30/2024 13:15:54 08/29/19 25 08/30/2024 CBC WITH DIFFE RENTI AL/PL ATELE T hematocrit 41.4 % 34.0-4 6.6 Not Available [facility] ([facility]) [address] [facility], [place], [address], 08/30/2024 13:15:54 08/29/19 25 08/30/2024 CBC WITH DIFFE RENTI AL/PL ATELE T MCV 89 fL 79-97 Not Available [facility] ([facility]) [address] [facility], [place], [address], 08/30/2024 13:15:54 08/29/19 25 08/30/2024 CBC WITH DIFFE RENTI AL/PL ATELE T MCH 28.4 pg 26.6-3 3.0 Not Available [facility] ([facility]) [address] [facility], [place], [address], 08/30/2024 13:15:54 08/29/19 25 08/30/2024 CBC WITH DIFFE RENTI AL/PL ATELE T MCHC 31.9 g/dL 31.5-3 5.7 Not Available [facility] ([facility]) [address] [facility], [place], [address], 08/30/2024 13:15:54 08/29/19 25 08/30/2024 CBC WITH DIFFE RENTI AL/PL ATELE T RDW 13.2 % 11.7-1 5.4 Not Available [facility] ([facility]) [address] [facility], [place], [address], 08/30/2024 13:15:54 08/29/19 25 08/30/2024 CBC WITH DIFFE RENTI AL/PL ATELE T platelets 184 x10e3 /uL 150-45 0 Not Available [facility] ([facility]) [address] [facility], [place], [address], 08/30/2024 13:15:54 08/29/19 25 08/30/2024 CBC WITH DIFFE RENTI AL/PL ATELE T neutrophils 72 % notest ab. Not Available [facility] ([facility]) [address] [facility], [place], [address], 08/30/2024 13:15:54 08/29/19 25 08/30/2024 CBC WITH DIFFE RENTI AL/PL ATELE T lymphs 21 % notest ab. Not Available [facility] ([facility]) [address] [facility], [place], [address], 08/30/2024 13:15:54 08/29/19 25 08/30/2024 CBC WITH DIFFE RENTI AL/PL ATELE T monocytes 6 % notest ab. Not Available [facility] ([facility]) [address] [facility], [place], [address], 08/30/2024 13:15:54 08/29/19 25 08/30/2024 CBC WITH DIFFE RENTI AL/PL ATELE T eos 1 % notest ab. Not Available [facility] ([facility]) [address] [facility], [place], [address], 08/30/2024 13:15:54 08/29/19 25 08/30/2024 CBC WITH DIFFE RENTI AL/PL ATELE T basos 0 % notest ab. Not Available [facility] ([facility]) [address] [facility], [place], [address], 08/30/2024 13:15:54 08/29/19 25 08/30/2024 CBC WITH DIFFE RENTI AL/PL ATELE T neutrophils (absolute) 3.8 x10e3 /uL 1.4-7. 0 Not Available [facility] ([facility]) [address] [facility], [place], [address], 08/30/2024 13:15:54 08/29/19 25 08/30/2024 CBC WITH DIFFE RENTI AL/PL ATELE T lymphs (absolute) 1.1 x10e3 /uL 0.7-3. 1 Not Available [facility] ([facility]) [address] [facility], [place], [address], 08/30/2024 13:15:54 08/29/19 25 08/30/2024 CBC WITH DIFFE RENTI AL/PL ATELE T monocytes(ab solute) 0.3 x10e3 /uL 0.1-0. 9 Not Available [facility] ([facility]) [address] [facility], [place], [address], 08/30/2024 13:15:54 08/29/19 25 08/30/2024 CBC WITH DIFFE RENTI AL/PL ATELE T eos (absolute) 0.1 x10e3 /uL 0.0-0. 4 Not Available [facility] ([facility]) [address] [facility], [place], [address], 08/30/2024 13:15:54 08/29/19 25 08/30/2024 CBC WITH DIFFE RENTI AL/PL ATELE T baso (absolute) 0.0 x10e3 /uL 0.0-0. 2 Not Available [facility] ([facility]) [address] [facility], [place], [address], 08/30/2024 13:15:54 08/29/19 25 08/30/2024 CBC WITH DIFFE RENTI AL/PL ATELE T immature granulocytes 0 % notest ab. Not Available [facility] ([facility]) [address] [facility], [place], [address], 08/30/2024 13:15:54 08/29/19 25 08/30/2024 CBC WITH DIFFE RENTI AL/PL ATELE T immature grans (abs) 0.0 x10e3 /uL 0.0-0. 1 Not Available [facility] ([facility]) [address] [facility], [place], [address], 08/30/2024 13:15:54 11/02/19 24 eye exam* No observ ation record ed. [email or web address] Not Available 2023 09:52:08 12/07/19 elect rocar diogr am No observ ation record ed. [email or web address] In-Office Order Internal Use Only DO Not Attach Compendium DO Not Attach Compendium, Do Not Delete/merge, [id number] 12/07/2023 16:15:46 12/07/19 24 12/07/2023 elect rocar diogr am No observ ation record ed. BARCODE In-Office Order Internal Use Only DO Not Attach Compendium DO Not Attach Compendium, Do Not Delete/merge, [id number] 12/07/2023 15:46:06 05/19/20 24 05/19/2024 MAMMO , scree divina, digit al, bilat eral No observ ation record ed. [facility] [address] [place], [address], 05/25/2024 11:53:26 05/19/20 24 05/19/2024 bone densi ty No observ ation record ed. [facility] [address] [place], [address], 05/25/2024 11:53:26 09/01/19 25 09/01/2024 XR, shoul alejandra, 2 or more view No observ ation record ed. [address], [place], [address], 09/01/2024 16:09:43 09/02/19 25 09/01/2024 XR, shoul alejandra, 2 or more view No observ ation record ed. [address], [place], [address], 09/02/2024 09:34:59 Result Notes None recorded. Problems Name Problem SNOMED Code Status Onset Date Resolution Date Notes Provider Name and Address Organization Details Recorded Time Type 2 diabetes mellitus 17587222 Active 2021 Not Available [facility] 4 07:40:57 Essential hypertension 91448598 Active 2023 Miky Oden MA [facility], [place] - [facility] 4 16:16:58 Hyperlipidemi a 63714063 Active 2023 Miky Oden MA null, [place] - [facility] 4 16:17:05 Chronic kidney disease stage 3 881249174 Active 2023 Micah Bunch MD Attn: Accounting ,[address] , [place], [address] , [facility] - [facility] 4 22:41:07 Problem Notes None recorded. Procedures Surgical History Date Name Laterality Status Provider Name and Address Organization Details Recorded Time Cerumen removal without microscope completed Criskimberly Pierre [place] - [facility] 07/21/2022 09:50:28 Joint Replacement completed Scar Escobedo [place] - [facility] 12/18/2016 14:47:01 Imaging Results Imaging Date Name Status LastModified by Organization Details LastModified Time 11/02/2023 eye exam* completed [email or web address] Information no t available 11/03/2023 09:52:08 12/07/2023 electrocardiogram completed [email or web address] In-Off ice Order Internal Use Only DO Not Attach Compendium DO Not Attach Compendium, Do Not Delete/merge, [id number] 12/07/2023 16:15:46 12/07/2023 electrocardiogram completed BARCODE In-Offi ce Order Internal Use Only DO Not Attach Compendium DO Not Attach Compendium, Do Not Delete/merge, [id number] 12/07/2023 15:46:06 05/19/2024 MAMMO, screening, digital, bilateral completed [facility] [address] [place], [address], 05/25/2024 11:53:26 05/19/2024 bone density completed [facility] [address] [place], [address], 05/25/2024 11:53:26 09/01/2024 XR, shoulder, 2 or more view active [address] [place] [address], [address], 09/01/2024 16:09:43 09/01/2024 XR, shoulder, 2 or more view active [facility] [address], [place], [address], 09/02/2024 09:34:59 Procedure Notes None recorded. Medical Equipment None Reported. Allergies No known drug allergies Medications Name Sig Start Date Stop Date Status Note LastModified by Organization Details LastModified Time pharmacist choice ultra thin lancet s 31g misc active Not Available Not Available Not Available amoxicillin 500 mg capsule 07/21 completed Not Available Not Available Not Available atorvastati n 40 mg tablet TAKE 1 TABLET BY MOUTH EVERYDAY AT BEDTIME active Not Available Not Available No t Available metformin 500 mg tablet TAKE 1 TABLET BY MOUTH EVERY DAY active Not Available Not Available No t Available carvedilol 6.25 mg tablet Take 1 tablet twice a day by oral route around the clock for 30 days. 10/28 completed Not Available Not Available Not Available atorvastati n 20 mg tablet TAKE 1 TABLET EVERY DAY AT DINNER, low saturated fat diet. 03/09 completed Not Available Not Available Not Available carvedilol 12.5 mg tablet TAKE 1 TABLET BY MOUTH TWICE A DAY active Not Available Not Available No t Available ofloxacin 0.3 % eye drops 09/25 completed Not Available Not Available Not Available hydrocodone 5 mg-acetamin ophen 325 mg tablet 09/25 completed Not Available Not Available Not Available lisinopril 20 mg tablet 09/25 completed Not Available Not Available Not Available prednisone 20 mg tablet 07/10 completed Not Available Not Available Not Available promethazin e 6.25 mg-codeine 10 mg/5 mL syrup Take 5 mL every 6 hours by oral route as needed for 7 days. 08/03 completed Not Available Not Available Not Available amlodipine 2.5 mg tablet Take 1 tablet every day by oral route. 04/07 completed Not Available Not Available Not Available acetaminoph en 300 mg-codeine 30 mg tablet TAKE 1 TABLET BY MOUTH FOUR TIMES A DAY NEEDED 04/11 completed Not Available Not Available Not Available chlorthalid one 25 mg tablet TAKE 1 TABLET BY MOUTH EVERY DAY active Not Available Not Available No t Available amlodipine 5 mg tablet Take 1 tablet every day by oral route as directed for 30 days. 10/10 completed Not Available Not Available Not Available chlorthalid one 50 mg tablet TAKE ONE TABLET DAILY IN THE MORNING 10/10 completed Not Available Not Available Not Available carvedilol 3.125 mg tablet TAKE 1 TABLET BY MOUTH TWICE A DAY 07/10 completed Not Available Not Available Not Available ketorolac 0.5 % eye drops 09/25 completed Not Available Not Available Not Available amoxicillin 875 mg tablet 08/22 completed Not Available Not Available Not Available famotidine 20 mg tablet TAKE 1 TABLET (20 MG TOTAL) BY MOUTH EVERY NIGHT. active Not Available Not Available No t Available prednisolon e acetate 1 % eye drops,suspe nsion 09/25 completed Not Available Not Available Not Available trazodone 100 mg tablet Take by oral route. 03/18 completed Not Available Not Available Not Available pantoprazol e 40 mg tablet,gael yed release Take 1 tablet every day by oral route before meals for 30 days. 10/10 completed Not Available Not Available Not Available lisinopril 10 mg tablet Take 1 tablet every day by oral route at bedtime. 07/10 completed Not Available Not Available Not Available polymyxin B sulfate 10,000 unit-trimet hoprim 1 mg/mL eye drops INSTILL 1 DROP INTO THE LEFT EYE EVERY 3 HOURS X7 DAYS 12/06 completed Not Available Not Available Not Available bupropion HCl 75 mg tablet TAKE 1 TABLET BY MOUTH EVERY DAY active Not Available Not Available No t Available lisinopril 30 mg tablet 10/10 completed Not Available Not Available Not Available omeprazole 20 mg capsule,del ayed release TAKE ONE CAPSULE BY MOUTH 30 MINUTES BEFORE A MEAL 12/06 completed Not Available Not Available Not Available gabapentin 100 mg capsule TAKE 1 CAPSULE BY MOUTH EVERY DAY AT NIGHT 12/06 completed Not Available Not Available Not Available ergocalcife rol (vitamin D2) 1,250 mcg (50,000 unit) capsule TAKE 1 CAPSULE BY MOUTH ONCE WEEKLY active Not Available Not Available No t Available scopolamine 1 mg over 3 days transdermal patch APPLY 1 PATCH ONTO THE SKIN ONCE EVERY 3 DAYS active Not Available Not Available No t Available oxybutynin chloride 5 mg tablet Take 1 tablet twice a day by oral route as directed for 30 days. 10/10 completed Not Available Not Available Not Available lisinopril 40 mg tablet TAKE 1 TABLET BY MOUTH EVERY DAY active Not Available Not Available No t Available doxycycline hyclate 100 mg tablet 07/10 completed Not Available Not Available Not Available amoxicillin 500 mg-potassiu m clavulanate 125 mg tablet Take 1 tablet every 12 hours by oral route after meals for 7 days. 07/21 completed Not Available Not Available Not Available paricalcito l 1 mcg capsule TAKE 1 CAPSULE (1 MCG TOTAL) BY MOUTH 3 TIMES WEEKLY: Wed AND WEDNESDAY MORNING 04/11 completed Not Available Not Available Not Available Vitamin D3 50 mcg (2,000 unit) capsule Take 1 capsule every day by oral route as directed for 30 days. 07/10 completed Not Available Not Available Not Available OneTouch Verio test strips active Not Available Not Available Not Available OneToConexus-ITio High Control solution active Not Available Not Available Not Available Haydee Chewable Low Dose Aspirin 81 mg tablet Chew 1 tablet every day by oral route as directed for 90 days. 09/25 completed Not Available Not Available Not Available Jardiance 10 mg tablet TAKE 1 TABLET BY MOUTH EVERY DAY AROUND THE CLOCK 04/11 completed Not Available Not Available Not Available Jardiance 25 mg tablet TAKE 1 TABLET BY MOUTH EVERY DAY IN THE MORNING active Not Available Not Available No t Available Rayaldee 30 mcg capsule,ext ended release 09/25 completed Not Available Not Available Not Available OneTouch Verio Reflect Meter active Not Available Not Available Not Available Vitals Date Recorded Body height Provider Name an d Address Organization Details Last Updated DateTime 10/28/2022 144.15 cm Chanda Blanton [facility] 10/28/2022 17:16:33 Date Recorded Body mass index (BMI) Body weight Provider Name and Address Organization Details Last Updated DateTime 10/28/2022 27.6 kg/m2 48849.08 g XOCHILT Lucas [facility] 10/28/2022 17:20:43 Date Recorded Oxygen saturation Oxygen saturation in Arterial blood by Pulse oximetry Provider Name and Address Organization Details Last Updated DateTime 10/28/2022 96 % 96 % Chanda Damon [place] [facility] 10/28/2022 17:23:19 Date Recorded Heart rate Provider Name an d Address Organization Details Last Updated DateTime 10/28/2022 71 /min Chanda Blanton MA [facility] 10/28/2022 17:23:22 Date Recorded Body height Provider Name an d Address Organization Details Last Updated DateTime 08/03/2023 144.15 [address] Martinez MA [facility] 08/03/2023 10:52:18 Date Recorded Body mass index (BMI) Body weight Provider Name and Address Organization Details Last Updated DateTime 08/03/2023 27.3 kg/m2 66917.[address] [facility] 10:52:41 Date Recorded Heart rate Provider Name an d Address Organization Details Last Updated DateTime 08/03/2023 67 /min Maddy Martinez MA [facility] 08/03/2023 10:54:57 Date Recorded Oxygen saturation Oxygen saturation in Arterial blood by Pulse oximetry Provider Name and Address Organization Details Last Updated DateTime 08/03/2023 98 % 98 % Maddy Martinez MA [facility] 08/03 10:55:04 Date Recorded Body height Provider Name an d Address Organization Details Last Updated DateTime 12/07/2023 144.15 [address] MA [facility] 2023 14:21:17 Date Recorded Body mass index (BMI) Body weight Provider Name and Address Organization Details Last Updated DateTime 12/07/2023 27.1 kg/m2 30631.[address] MA [facility] 12/07/2023 14:21:29 Date Recorded Body temperature Provider Name a nd Address Organization Details Last Updated DateTime 12/07/2023 98 [degF] Berta Darnell MA [facility] 12/07/2023 14:29:13 Date Recorded Heart rate Provider Name an d Address Organization Details Last Updated DateTime 12/07/2023 75 /min Berta Darnell MA [facility] 2023 14:29:15 Date Recorded Oxygen saturation Oxygen saturation in Arterial blood by Pulse oximetry Provider Name and Address Organization Details Last Updated DateTime 12/07/2023 99 % 99 % Berta Darnell MA [facility] 12/07/2023 14:29:22 Date Recorded Body height Provider Name an d Address Organization Details Last Updated DateTime 04/11/2024 144.15 cm Arabella Cintron [place] [facility] 15:12:59 Date Recorded Body mass index (BMI) Body weight Provider Name and Address Organization Details Last Updated DateTime 04/11/2024 27.3 kg/m2 10929.05 g Arabella Cintron [facility] 0 04/11/2024 15:17:51 Date Recorded Heart rate Provider Name an d Address Organization Details Last Updated DateTime 04/11/2024 75 /min Arabella Cintron [facility] 15:22:49 Date Recorded Oxygen saturation Oxygen saturation in Arterial blood by Pulse oximetry Provider Name and Address Organization Details Last Updated DateTime 04/11/2024 97 % 97 % Arabella Cintron [facility] 04/11/2024 15:22:51 Date Recorded Body height Provider Name an d Address Organization Details Last Updated DateTime 08/29/2024 144.15 cm Arabella Cintron [facility] 14:59:56 Date Recorded Body mass index (BMI) Body weight Provider Name and Address Organization Details Last Updated DateTime 08/29/2024 26 kg/m2 59961.21 g Arabella Cintron [facility] 15:02:51 Date Recorded Heart rate Provider Name an d Address Organization Details Last Updated DateTime 08/29/2024 62 /min Arabella Cintron [facility] 15:12:48 Date Recorded Oxygen saturation Oxygen saturation in Arterial blood by Pulse oximetry Provider Name and Address Organization Details Last Updated DateTime 08/29/2024 96 % 96 % Arabella Cintron [facility] 08/29/2024 15:12:42 Date Recorded Systolic blood pressure Diastolic blood pressure Provider Name and Address Organization Details Last Updated DateTime 10/28/2022 120 mm[Hg] 70 mm[Hg] Chanda Damon [facility] 10/28/2022 17:23:25 Date Recorded Systolic blood pressure Diastolic blood pressure Provider Name and Address Organization Details Last Updated DateTime 08/03/2023 118 mm[Hg] 58 mm[Hg] Maddy Martinez [facility] 07/16 10:55:15 Date Recorded Systolic blood pressure Diastolic blood pressure Provider Name and Address Organization Details Last Updated DateTime 12/07/2023 144 mm[Hg] 66 mm[Hg] Berta XOCHILT Darnell [facility] 12/07/2023 14:30:50 Date Recorded Systolic blood pressure Diastolic blood pressure Provider Name and Address Organization Details Last Updated DateTime 04/11/2024 114 mm[Hg] 62 mm[Hg] rAabella Cintron [place] [facility] 04/11/2024 15:23:59 Date Recorded Systolic blood pressure Diastolic blood pressure Provider Name and Address Organization Details Last Updated DateTime 08/29/2024 118 mm[Hg] 62 mm[Hg] Arabella Cintron [place] [facility] 08/29/2024 15:14:48 Social History Question Answer Notes LastModified by Organizat ion Details LastModified Time Tobacco Smoking Status Never Smoker Scar Escobedo [place] null, [place] [facility] 12/18/2016 14:48:23 Do You Have An Advance Directive? No Information not available 07/21/2022 What Is Your Level Of Alcohol Consumption? None [email or web address] Information not available 12/18/2016 Are You Blind Or Do You Have Difficulty Seeing? No Information not available 08/03/2023 What Is Your Level Of Caffeine Consumption? Occasional Information not available 12/07/2023 In The 14 Days Before Symptom Onset, Have You Had Close Contact With A Laboratory-confir med COVID-19 While That Case Was Ill? No Information not available 07/21/2022 In The 14 Days Before Symptom Onset, Have You Had Close Contact With A Person Who Is Under Investigation For COVID-19 While That Person Was Ill? No Information not available 07/21/2022 Have You Been To An Area Known To Be High Risk For COVID-19? No Information not available 07/21/2022 Are You Currently Employed? No Information not available 08/03/2023 Are You Deaf Or Do You Have Serious Difficulty Hearing? No Information not available 08/03/2023 What Type Of Diet Are You Following? REGULAR Information not available 08/03/2023 What Is The Highest Grade Or Level Of School You Have Completed Or The Highest Degree You Have Received? [id number] Information not available 08/03/2023 Are There Any Guns Present In Your Home? No Information not available 08/03/2023 What Was The Date Of Your Most Recent Tobacco Screening? 08/29/2024 Information not available 08/29/2024 What Is Your Relationship Status? Single Information not available 08/03/2023 Do You Use Your Seat Belt Or Car Seat Routinely? Yes Information not available 08/03/2023 Do You Have Smoke And Carbon Monoxide Detectors In Your Home? Yes Information not available 08/03/2023 Do You Or Have You Ever Used Smokeless Tobacco? Never Used Smokeless Tobacco Information not available 08/22/2020 How Much Tobacco Do You Smoke? No Information not available 08/22/2020 Do You Feel Stressed (tense, Restless, Nervous, Or Anxious, Or Unable To Sleep At Night)? [id number] Information not available 08/03/2023 Do You Use Any Illicit Or Recreational Drugs? No Information not available 12/07/2023 Do You Use Sunscreen Routinely? No Information not available 08/03/2023 Has Tobacco Cessation Counseling Been Provided? No Information not available 04/11/2024 On What Date Was Tobacco Cessation Counseling Provided? 08/29/2024 Information not available 08/29/2024 Do You Or Have You Ever Used Any Other Forms Of Tobacco Or Nicotine? No Information not available 12/07/2023 Sex: Female Functional Status Question Answer Note LastModified by Organizat ion Details LastModified Time Are you able to care for yourself? Yes Information not available 08/03/2023 What is your exercise level? Occasional Information not available 08/03/2023 Mental Status None recorded. Family History Relationship Description Onset Age of this Age Resolved Age Notes LastModified by Organization Details LastModified Time Father Alcohol abuse [email or web address] Not available 12/18 14:47:16 Notes:No new family history, me/rma Medical History Condition Response Diabetes Y High Blood Pressure Y Kidney or Bladder Problems Y High Cholesterol Y Gynecological HistoryNo gynecological history recorded. Obstetrics History GPAL:G 0 P 0 0 0 0 Immunizations Vaccine Type Date Status Note Provider Nam e and Address Organization Details Recorded Time COVID-19, mRNA, LNP-S, PF, 30 mcg/0.3 mL dose 1 completed Not Available [facility] 08/26/2023 07:40:58 COVID-19, mRNA, LNP-S, PF, 30 mcg/0.3 mL dose 1 completed Not Available [facility] 08/26/2023 07:40:58 Influenza, MDCK, quadrivalent, preservative 9 completed Margaret [place] null, [place] - [facility] 08/28/2024 12:15:53 Influenza, high-dose, quadrivalent, PF 1 completed [place] [facility] 08/28/2024 12:15:53 COVID-19, mRNA, LNP-S, PF, 30 mcg/0.3 mL dose 1 completed Margaret [place] [facility] 08/28/2024 12:15:53 COVID-19, mRNA, LNP-S, PF, 30 mcg/0.3 mL dose, adeline-sucrose 2 completed Margaret [place] [facility] 08/28/2024 12:15:53 Influenza, split virus, trivalent, PF 4 completed Margaret [place] [facility] 08/28/2024 12:15:53 Influenza, split virus, quadrivalent, PF 8 completed Margaret [place] [facility] 08/28/2024 12:15:53 Influenza, split virus, quadrivalent, PF 0 completed Margaret [place] [facility] 08/28/2024 12:15:53 Influenza, split virus, quadrivalent, preservative 7 completed Not Available [facility] 09/02/2019 02:34:19 Tdap 8 completed Not Available [facility] 09/02/2019 02:41:33 pneumococcal, unspecified formulation 2 completed Not Available [facility] 08/26/2023 07:40:58 Past Encounters Encounter ID Performer Location Encounter Start Date Encounter Closed Date Diagnosis/Indication Diagnosis SNOMED-CT Code Diagnosis ICD10 Code Diagnosis Note [id number] Scar Escobedo MA [facility] (Adult Med) [address] [place] [id number] 0 12/18/2016 14:11:22 12/18/2016 15:49:29 Diabetes mellitus 00827566 E11.9 Diabetic diet. Screening mammography 24 304532 Z12.31 Screening for malignant neoplasm of cervix 959092593 Z12.4 Hyperlipidemia 65755451 E78.5 Low saturated fat diet, diabetic diet. Essential hypertension 32861422 I10 Low salt diet. [id number] [facility] [address] [place] [address] [id number] 0 03/18/2017 11:55:51 03/22/2017 12:22:10 Type 2 diabetes mellitus 72196470 E11.9 No neuropathy , her HgA1c is 5.7, blood sugar is on the target range, mild impaired eGFR, she will see her eye doctor in the near future. On metformin 500 mg/day. To continue regular exercise , diabetic diet and keep the weight down. Essential hypertension 82421920 I10 Low salt diet. On lisinopril 40 mg/day and carvedilol 3.125 mg twice/day and her BP is well controlled . Chronic ki dney disease stage 1 064268942 N18.1 Under the care of her nephrologi st . Hyperlipidemia 40825797 E78.5 Low saturated fat diet, diabetic diet. and atorvastat in 20 mg/day. Triglyceri de is 142, HDL 35 and LDL 81. [id number] MD [facility] (Adult Med) [address] [place] [address] [id number] 0 05/14/2017 10:36:28 05/14/2017 12:21:35 Type 2 diabetes mellitus 44874231 E11.9 No neuropathy , her HgA1c is 5.7, blood sugar is on the target range, mild impaired eGFR, she will see her eye doctor in the near future. On metformin 500 mg/day. To continue regular exercise , diabetic diet and keep the weight down. Essential hypertension 26917866 I10 Low salt diet. On lisinopril 40 mg/day and carvedilol 3.125 mg twice/day and her BP is well controlled . Dyslipidemia 388638413 E 78.5 Cataract 399407070 H26.9 Under the care of her ophthalmol ogist.Eliseo ruffin for the out patient cataract operation. Contacted [facility] ,Dr. Hanna, Nurse Rebecca Goyo hicks. Administra tion of influenza vaccine 12891080 Z23 She tolerated well. 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 and renewal of handicappe d parking card. [id number] Juliane Nichols MD [facility] (Adult Med) [address] [place] [address] [phone] 0 12/07/2017 16:57:22 12/13/2017 10:59:38 Active or passive immunization 732249573 Z23 [id number] Juliane Nichols MD [facility] (Adult Med) [address] [place] [address] [id number] 0 04/07/2018 17:10:38 04/07/2018 18:08:42 Type 2 diabetes mellitus without complication 011352768 E11.9 Essential hypertension 57753871 I10 Low salt diet. On lisinopril 40 mg/day and carvedilol 3.125 mg twice/day and her BP is well controlled . 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 Screening for malignant neoplasm of colon 920717765 Z12.11 Patient refuses. [id number] [facility] (Adult Med) [address] [place] [address] [phone] 0 10/10/2018 17:02:19 10/10/2018 18:02:21 Type 2 diabetes mellitus without complication 475925727 E11.9 Blood sugar 182 mg%. Hga1C 5.5% 08-23-2018 . To continue diabetic diet, exercise. and keep the weight down. Dyslipidem ia due to type 2 diabetes mellitus 3881721538 02 E78.5 Essential hypertension 53358810 I10 Low salt diet. On lisinopril 40 mg/day and carvedilol 3.125 mg twice/day and her BP is well controlled . Gastroesop hageal reflux disease 016387762 K21.9 Vitamin D deficiency 347 28809 E55.9 [id number] [facility] (Adult Med) [address] [place] [address] [phone] 0 03/09/2019 16:58:36 03/10/2019 15:28:17 Type 2 diabetes mellitus without complication 920557872 E11.9 Blood sugar 182 mg%. Hga1C 5.5% 08-23-2018 . To continue diabetic diet, exercise. and keep the weight down. well controlled . [id number] Juliane Nichols MD [facility] (Adult Med) [address] [place] [address] [id number] 0 07/10/2019 17:06:41 07/10/2019 18:20:24 Acid reflux 126414221 K21.9 Essential hypertension 80231407 I10 Low salt diet. On lisinopril 40 mg/day and carvedilol 3.125 mg twice/day and her BP is well controlled . Type 2 melchor betes mellitus without complication 386529750 E11.9 Blood sugar 182 mg%. Hga1C 5.5% 08-23-2018 . To continue diabetic diet, exercise. and keep the weight down. well controlled . SHe got daily aspirin frm OTC. Dyslipidem ia due to type 2 diabetes mellitus 4184056889 02 E78.5 Low saturated fat diet. [id number] MD [facility] (Adult Med) [address] [place] [address] [phone] 0 07/28/2019 16:15:11 08/01/2019 09:16:03 Bilateral cataracts 26778446 H26.9 Discussed with patient. [id number] MD [facility] (Adult Med) [address] [place] [address] [phone] 0 11/06/2019 16:57:43 11/06/2019 17:00:41 [id number] MD [facility] (Adult Med) [address] [place] [address] [phone] 0 01/05/2020 08:17:20 01/10/2020 07:00:02 Type 2 diabetes mellitus without complication 158127802 E11.9 Blood sugar 182 mg%. Hga1C 5.5% 08-23-2018 . To continue diabetic diet, exercise. and keep the weight down. well controlled . SHe got daily aspirin frm OTC. On metformin, just got refilled 01-05-2020 . Dyslipidem ia due to type 2 diabetes mellitus 0261151317 02 E78.5 Low saturated fat diet. On atorvastat in, just got refilled 01-05-2020 . Acid reflux 610137702 K2 1.9 On omeprazole , has enough refilled. 01-05-2020 . Essential hypertension 80836817 I10 Low salt diet. On lisinopril 40 mg/day and carvedilol 3.125 mg twice/day and her BP is well controlled . Got enough refilled 01-05-2020 . [id number] MD [facility] (Adult Med) [address] [place] [address] [id number] 0 08/22/2020 08:19:42 08/23/2020 11:53:56 Essential hypertension 84217635 I10 Low salt diet. On lisinopril 40 mg/day and carvedilol 3.125 mg twice/day and her BP is well controlled . Got enough refilled 01-05-2020 . Acid reflux 513298804 K2 1.9 On omeprazole , has enough refilled. 01-05-2020 . Type 2 melchor betes mellitus without complication 394574318 E11.9 Diet betic diet, exercisee and keep the weight down. [id number] MD [facility] (Adult Med) [address] [place] [address] [id number] 0 09/25/2020 12:17:17 09/26/2020 12:28:01 Adult health examination 744631325 Z00.00 She can not provided the up-dated immunizati on record. Urinary incontinence 165 378776 R32 Last prescripti on was 2015.ut she asks to day for refill. [id number] MD [facility] (Adult Med) [address] [place] [address] [phone] 0 12/17/2020 12:35:48 12/18/2020 11:25:30 Acid reflux 000824639 K21.9 On omeprazole , has enough refilled. 01-05-2020 . [id number] MD [facility] (Adult Med) [address] [place] [address] [phone] 0 03/10/2021 14:14:53 03/17/2021 21:55:05 Osteoarthritis of knee 248563418 M17.9 fei Kay had operated on her right knee before. [id number] MD [facility] (Adult Med) [address] [place] [address] [id number] 0 10/10/2021 12:32:41 10/10/2021 13:23:24 Hyperglycemia 57392729 R73.9 On metformin. , diabetic diet, exercise and keep the weight down. Type 2 melchor betes mellitus 79374841 E11.9 No neuropathy , her HgA1c is 5.7, blood sugar is on the target range, mild impaired eGFR, she will see her eye doctor in the near future. On metformin 500 mg/day. To continue regular exercise , diabetic diet and keep the weight down. Dyslipidem ia due to type 2 diabetes mellitus 6379168084 02 E78.5 Low animal fat diet. Essential hypertension 79346654 I10 Low salt diet. On lisinopril 40 mg/day and carvedilol 3.125 mg twice/day and her BP is well controlled . Got enough refilled 01-05-2020 . Acid reflux 983419818 K2 1.9 On omeprazole , has enough refilled. 01-05-2020 . [id number] MD [facility] (Adult Med) [address] [place] [address] [phone] 0 02/10/2022 10:42:12 02/11/2022 10:58:17 Type 2 diabetes mellitus 26452252 E11.9 No neuropathy , her HgA1c is 5.7, blood sugar is on the target range, mild impaired eGFR, she will see her eye doctor in the near future. On metformin 500 mg/day. To continue regular exercise , diabetic diet and keep the weight down. To continue metformin 500 mg/day, jardiance2 5 mg/day. Dyslipidem ia due to type 2 diabetes mellitus 2111007002 02 E78.5 Low animal fat diet. to continue atorvastat in 40 mg/day. Hypertensive disorder 38 755853 I10 on carvedilol 12.5 mg bid and lisinopril 40 mg/day. Acid reflux 730788909 K2 1.9 On omeprazole , has enough refilled. 01-05-2020 . Diarrhea 23510400 R19.7 On liquid diet, avoid dairy product,so far she is getting better, she is welcome to contact this office for question . [id number] [facility] [address] [place] [address] [id number] 0 05/04/2022 16:59:26 05/05/2022 08:09:50 Type 2 diabetes mellitus 20878927 E11.9 No neuropathy , her HgA1c is 5.7, blood sugar is on the target range, mild impaired eGFR, she will see her eye doctor in the near future. On metformin 500 mg/day. To continue regular exercise , diabetic diet and keep the weight down. To continue metformin 500 mg/day, jardiance2 5 mg/day. Acute bronchitis 7270939 2 J20.9 Discussed with patient, she agreed for the med ordered. Impacted c erumen of bilateral ears 1060072879 022460 H61.23 She is going to try [facility]TV WAX Rx kit. SELf cleaning. [id number] MD [facility] (Adult Med) [address] [place], [place] [phone] 0 05/20/2022 16:57:12 05/21/2022 09:09:06 Hearing disorder 546684007 H91.93 Needs to see ENT , then audiologis t for up-dated hearing aids. [id number] Sawyer Ca MD [facility] [address] [place] [address] 07/21/2022 14:30:42 07/27/2022 10:28:55 Impacted cerumen 70299266 H61.20 Impacted c erumen in left ear 1838594439 417524 H61.22 cerumen cleared Chronic se aurora otitis media of right ear 898845285 H65.21 return back if audiogram confirms fluid [id number] MD [facility] Portillo (Adult Med) [address] [place] [address] [id number] 0 10/28/2022 16:58:48 10/29/2022 14:49:49 Type 2 diabetes mellitus 34101241 E11.9 No neuropathy , her HgA1c is 5.7, blood sugar is on the target range, mild impaired eGFR, she will see her eye doctor in the near future. On metformin 500 mg/day. To continue regular exercise , diabetic diet and keep the weight down. To continue metformin 500 mg/day, jardiance2 5 mg/day. Dyslipidem ia due to type 2 diabetes mellitus 4402077474 02 E78.5 Low animal fat diet. to continue atorvastat in 40 mg/day. Essential hypertension 73785937 I10 Low salt diet. On lisinopril 40 mg/day and carvedilol 3.125 mg twice/day and her BP is well controlled . Got enough refilled 01-05-2020 . As 10-28-22. BP is 120/70. Acid reflux 183661782 K2 1.9 On omeprazole , has enough refilled. 01-05-2020 . [facility] er screening declined [id number] 9109 Z53.20 Refuse toady 10-28-22. [id number] MD [facility] (Adult Med) [address] [place] [address] [phone] 08/03/2023 10:18:34 08/03/2023 11:13:57 Type 2 diabetes mellitus 51304213 E11.9 No neuropathy , her HgA1c is 5.7, blood sugar is on the target range, mild impaired eGFR, she will see her eye doctor in the near future. On metformin 500 mg/day. To continue regular exercise , diabetic diet and keep the weight down. To continue metformin 500 mg/day, jardiance2 5 mg/day. Dyslipidem ia due to type 2 diabetes mellitus [id number] 02 E78.5 Low animal fat diet. to continue atorvastat in 40 mg/day. Essential hypertension 38817160 I10 Low salt diet. On lisinopril 40 mg/day and carvedilol 3.125 mg twice/day and her BP is well controlled . Got enough refilled 01-05-2020 . As 10-28-22. BP is 120/70. As 08-03-23, BP is 118/58 today. Acid reflux 583834481 K2 1.9 On omeprazole , has enough refilled. 01-05-2020 . Degenerati ve joint disease involving multiple joints 239004200 M15.9 Stable. Gastroesop hageal reflux disease 497954129 K21.9 Stable. [id number] [facility] [address] [place] [address] [phone] 12/07/2023 13:57:33 12/07/2023 16:15:12 Pre-surgery evaluation 055500677 Z01.818 Type 2 melchor betes mellitus 88638169 E11.9 Essential hypertension 40152258 I10 Hyperlipidemia 98861611 E78.5 Tuberculos is screening 584679733 Z11.1 Chronic ki dney disease stage 3 858601850 N18.30 [id number] MD Marva Gomez (Adult Med) [address] [place] [address] [phone] 0 04/11/2024 14:46:31 04/11/2024 16:15:37 Type 2 diabetes mellitus 71705434 E11.9 Essential hypertension 19036388 I10 Screening mammography 24 777879 Z12.31 Postmenopausal state 764 10196 Z78.0 [id number] MD Marva Gomez (Adult Med) [address] [place] [address] [phone] 0 08/29/2024 14:56:05 08/29/2024 15:37:19 Body mass index 25-29 - overweight 666746292 Z68.26 Overweight 141272405 E66 .3 Essential hypertension 99849502 I10 Hyperlipidemia 30035240 E78.5 Type 2 melchor betes mellitus 39978261 E11.9 Loss of hair 021730481 L 65.9 Pain of le ft shoulder joint 6016189019 5778286 M25.512 Health Concerns Section Related Observation LastModified by Organization Detai ls LastModified Time None Recorded Concern Status LastModified by Organization Details LastModified Time None Recorded Advance Directives Directive N: Payers Encounter Date Sequence Insurance Name Policy Number Policy Hanna Covered Member ID Hanna Member ID Guarantor Name 10/28/[address] [facility] (MEDICARE REPLACEMENT/A DVANTAGE - HMO) [id number] Lurena A Foster [id number] Lurena Foster 10/28/2022 2 [place] [facility] Lurena Foster [id number] Lurena Foster 08/03/[address] [facility] (MEDICARE REPLACEMENT/A DVANTAGE - HMO) [id number] Lurena A Foster [id number] Lurena Foster 08/03/2023 2 [place] [employer] Lurena Foster [id number] Lurena Foster 12/07/[address] [facility] (MEDICARE REPLACEMENT/A DVANTAGE - HMO) [id number] Lurena A Foster [id number] Lurena Foster 04/11/[address] [facility] (MEDICARE REPLACEMENT/A DVANTAGE - HMO) [id number] Lurena A Foster [id number] Lurena Foster 08/29/[address] [facility] (MEDICARE REPLACEMENT/A DVANTAGE - HMO) [id number] Lurena A Foster [id number] Lurena Foster Notes Date Note Type Note Provider Name and Address Organization Details Recorded Time 10/28/2022 text/html Office vist. NKD A. history of type 2 DM. dyslipidemia, hypertension and acid reflux. Juliane Nichols MD Attn: Accounting[address] [place], [address], [facility] 10/28/2022 18:16:51 08/03/2023 text/html Office visit, , NKDA. has enough med refills. No chest pain, no shortness of breathing. Heart regular, no murmur.Abdomen soft, no mass.Legs no edema. some stiffness of knee, bi=ut able to ambulating by her own. Juliane Nichols MD Attn: Accounting, [address] [place], [address], [facility] 08/03/2023 14:04:20 12/07/2023 text/html Needs forms fill ed out for daycare diabetes no polyphagia polydipsia hypertension no headache or dizziness dyslipidemia tries to follow low-fat diet she also needs TB screening done. Low vitamin D level that needs to be checked remote history of colon cancer and chemotherapy. Anxiety has been stable and also neuropathy it sounds like Micah Bunch MD Attn: Accounting, [address] [place], [address], [facility] 12/18/2023 21:35:15 04/11/2024 text/html hypertension no headache no dizziness diabetes no polyphagia no polydipsia does not take her sugars as regularly as she should CKD 3 she has not had any fatigue there has not been any swelling in her legs no nausea no vomiting Micah Bunch MD Attn: Accounting, [address] [place], [address], [facility] 04/11/2024 22:11:58 08/29/2024 text/html hypertension blo od pressure controlled no dizziness or headache. Diabetes does not take sugars regularly needs to have it evaluated biochemically. She has experienced some hair loss she has also experienced some left shoulder pain atraumatic hurts to raise her arm above her head neck is fine Micah Bunch MD Attn: Accounting, [address] [place], [address], [place] [facility] 08/31/2024 23:57:43 OBGyn Episode No OBEpisode recorded.
--- OUTSIDE RECORDS SUMMARY | 2024-09-07 06:42 | XMS_ITS | Clinical Summary ---
Author Organization [facility] Address [address] [facility] [address] [place] [address] Phone Care Team Providers Care Cabinet Builder Name Role Phone Laureano Bunch MD Primary Care Provider [phone] Allergies No known active allergies Medications lisinopril 40 MG tablet TAKE ONE TABLETS BY MOUTH DAILY AT BEDTIME 90 tablet 2 Active atorvastatin (LIPITOR) 40 MG tablet TAKE ONE TABLET BY MOUTH NIGHTLY AT BEDTIME 90 tablet 2 Active buPROPion (WELLBUTRIN) 75 MG tablet TAKE 1 TABLET BY MOUTH 1 TIME EACH DAY. 90 tablet 1 3 Active gabapentin (NEURONTIN) 100 MG capsule TAKE 1 CAPSULE BY MOUTH EVERY NIGHT. 90 capsule 1 3 Active carvedilol (COREG) 12.5 MG tablet TAKE 1 TABLET BY MOUTH TWICE A DAY 180 tablet 1 4 Active Empagliflozin (Jardiance) 25 MG tablet Take 25 mg by mouth 1 (one) time each day in the morning 90 tablet 1 4 Active ergocalciferol 1.25 MG (63533 UT) capsule TAKE 1 CAPSULE BY MOUTH ONCE WEEKLY 12 capsule 1 4 Active scopolamine (TRANSDERM-SCO P) 1 MG/3DAYS patch 72 hour APPLY 1 PATCH ONTO THE SKIN ONCE EVERY 3 DAYS 4 patch 3 4 Active famotidine (PEPCID) 20 MG tablet TAKE 1 TABLET (20 MG TOTAL) BY MOUTH EVERY NIGHT. 90 tablet 1 5 Active famotidine (PEPCID) 20 MG tablet TAKE 1 TABLET (20 MG TOTAL) BY MOUTH EVERY NIGHT. 90 tablet 1 08/21/19 25 Discontinued Encounters Date Type Department Care Team Description 08/21/2024 Refill [facility], [address] [address] Thee Sebastian DO 07/21/2024 Refill [place] [facility], [facility] [address] [address] Thee Sebastian DO from Last 3 Months Social History Tobacco Use Types Packs/Day Years Used Date Smoking Tobacco: Never Smokeless Tobacco: Never Alcohol Use Standard Drinks/Week Comments No 0 (1 standard drink = 0.6 oz pur e alcohol) Comments Unknown Sex and Gender Information Value Date Recorded Sex Assigned at Not on file Legal Sex Female 2:51 PM EDT Gender Identity Not on file Sexual Orientation Not on file Last Filed Vital Signs Vital Sign Reading Time Taken Comments Blood Pressure 120/60 02/15/2024 1:00 PM CDT Pulse 74 02/15/2024 1:00 PM CDT Temperature 36.1 ??C (97 ??F) 02/15/2024 1:00 PM CDT Respiratory Rate 18 02/15/2024 1:00 PM CDT Oxygen Saturation 97% 02/15/2024 1:00 PM CDT Inhaled Oxygen Concentration - - Weight 57.2 kg (126 lb) 02/15/2024 1:00 PM CDT Height 144.8 cm (4' 9 ) 08/11/2022 1:40 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 Body Mass Index 27.27 08/11/2022 1:40 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 Plan of Treatment Upcoming Encounters Date Type Department Care Team (Late st Contact Info) Description 11/14/2024 2:15 PM CDT Office Visit [place] [facility], [facility] [address] [address] Thee Sebastian DO [address] [place] [phone] Health Maintenance Due Date Last Done Comments Pneumococcal Vaccine: 65+ Years (1 of 2 - PCV) 1951 08/16/2011 Diabetes: Hemoglobin A1C 01/10/2021 Diabetes: Ophthalmology Exam 01/10/2021 Diabetes: Pedal Pulse Checked 01/10/2021 Diabetes: Sensory Foot Exam 01/10/2021 Diabetes: Visual Foot Exam 01/10/2021 Influenza Vaccine (#1) 2024 7, 05/14/2017 Hepatitis B Vaccine Aged Out No longe r eligible based on patient's age to complete this topic Insurance MEDICAID [place] UHC MEDICARE Care Teams Cabinet Builder Relationship Specialty Start Date End Date Laureano Bunch MD [address] [facility] [address] [place] [address] PCP - General Internal Medicine 02/15/24
--- OUTSIDE RECORDS SUMMARY | 2024-09-07 06:42 | XMS_ITS | Encounter Summary ---
Author Organization [facility] Address [address] [place] [phone] Phone Care Team Providers Care Silo Erector Name Role Phone Laureano Bunch MD Primary Care Provider [phone] Reason for Visit * Reason Comments Med Refill Encounter Details Date Type Department Care Team (Late Contact Info) Description 02/20/2021 Refill [facility] [address] [address] Thee Sebastian DO [address] [facility] [address] [place] [address] Social History Tobacco Use Types [...] Description 11/14/2024 2:15 PM CDT Office Visit [facility] [address] [facility] [address] [place] [address] Thee Sebastian DO [address] [facility] [address] [place] [address] documented as of this encounter Visit Diagnoses Not on filedocumented in this encounter Care Teams Silo Erector Relationship Specialty Start Date End Date Laureano Bunch MD [address] [facility] [address] [place] [address] PCP - General Internal Medicine 02/15/24 documented as of this encounter
--- OUTSIDE RECORDS SUMMARY | 2024-09-07 06:42 | XMS_ITS | Patient Health Summary ---
Author Organization [facility] Address [address] [facility] [place] [address] Care Team Providers Care Director E Learning Name Role Phone Unavailable Primary Care Provider Unavailabl e Note from [facility],non-owned Affiliates and Associated Physician Practices is amultiple site organization consisting of ambulatory clinics and hospital sitesin [place], [place], [place] and [place]. This disclosure is being madepursuant to the Care Everywhere program and may not contain all information available regarding this patient. Last updated 18.[facility] Allergies No known active allergies Medications * Be aware that medications may not be up to date on this document. Alwaysverify current medications with the patient. * LISINOPRIL PO * metFORMIN (GLUCOPHAGE) 500 MG tablet Take 500 mg by mouth 2 times daily with morning and evening meal * benzonatate (TESSALON) 100 MG capsule(Started 07/23/2017) Take 1 capsule by mouth 3 times daily as needed for Cough Reasons: Cough Social History Tobacco Use Types Packs/Day Years Used Date Smoking Tobacco: Never Smokeless Tobacco: Never Sex and Gender Information Value Date Recorded Sex Assigned at Not on file Gender Identity Not on file Sexual Orientation Not on file Last Filed Vital Signs Vital Sign Reading Time Taken Comments Blood Pressure 154/90 07/23/2017 4:57 PM NEON INSTALLER Pulse 88 07/23/2017 4:57 PM NEON INSTALLER Temperature 36.6 ??C (97.9 ??F) 07/23/2017 4:57 PM CS T Respiratory Rate 17 07/23/2017 4:57 PM NEON INSTALLER Oxygen Saturation 96% 07/23/2017 4:57 PM NEON INSTALLER Inhaled Oxygen Concentration - - Weight 59 kg (130 lb) 07/23/2017 4:57 PM NEON INSTALLER Height 147.3 cm (4' 10 ) 07/23/2017 4:57 PM NEON INSTALLER Body Mass Index 27.17 07/23/2017 4:57 PM NEON INSTALLER Procedures * SKIN TEST PPD - POINT OF CARE(Performed 09/23/2017) Performed for Encounter for PPD test Results * SKIN TEST PPD - POINT OF CARE (09/23/2017) PPD 0mm Other MISCELLANEOUS SAMPLE S / Unknown 09/23/2017 Rebecca Bermudez ASSEMBLER FOR 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
--- OUTSIDE RECORDS SUMMARY | 2024-09-07 06:42 | XMS_ITS | Clinical Summary ---
Author Organization [facility] [employer] Address [address] [facility] [place] [address] Care Team Providers Care Commercial Credit Portfolio Manager Name Role Phone Unavailable Primary Care Provider Unavailabl e Source Comments [facility],non-owned Affiliates and Associated Physician Practices is amultiple site organization consisting of ambulatory clinics and hospital sitesin [place], [place], [place] and [place]. This disclosure is being madepursuant to the Care Everywhere program and may not contain all information available regarding this patient. Last updated 18.[facility] [employer] Allergies No known active allergies Medications * Be aware that medications may not be up to date on this document. Alwaysverify current medications with the patient. Medication Sig Dispensed Refills Start Date End Date Status LISINOPRIL PO Active metFORMIN (GLUCOPHAGE) 500 MG tablet Take 500 mg by mouth 2 times daily with morning and evening meal Active benzonatate (TESSALON) 100 MG capsuleIndications:C ough Take 1 capsule by mouth 3 times daily as needed for Cough Reasons: Cough 30 capsule 07/23/2017 Active Social History Tobacco Use Types Packs/Day Years Used Date Smoking Tobacco: Never Smokeless Tobacco: Never Sex and Gender Information Value Date Recorded Sex Assigned at Not on file Gender Identity Not on file Sexual Orientation Not on file Last Filed Vital Signs Vital Sign Reading Time Taken Comments Blood Pressure 154/90 07/23/2017 4:57 PM BOWL ATTENDANT Pulse 88 07/23/2017 4:57 PM BOWL ATTENDANT Temperature 36.6 ??C (97.9 ??F) 07/23/2017 4:57 PM CS T Respiratory Rate 17 07/23/2017 4:57 PM BOWL ATTENDANT Oxygen Saturation 96% 07/23/2017 4:57 PM BOWL ATTENDANT Inhaled Oxygen Concentration - - Weight 59 kg (130 lb) 07/23/2017 4:57 PM BOWL ATTENDANT Height 147.3 cm (4' 10 ) 07/23/2017 4:57 PM BOWL ATTENDANT Body Mass Index 27.17 07/23/2017 4:57 PM BOWL ATTENDANT Plan of Treatment Health Maintenance Due Date Last Done Comments BONE DENSITY TESTING 1945 MEDICARE AWV ? 12 MONTHS 1945 HEPATITIS C SCREENING 11/06/1964 DTAP/TDAP/TD VACCINES (1 - Tdap) 1965 PNEUMOCOCCAL VACCINE 50+ (1 of 1 - PCV) 1996 ZOSTER VACCINE (1 of 2) 1996 SCREENING FOR DIABETES 07/23/2017 Respiratory Syncytial Virus (RSV) Vaccine Pt: or over 60 yrs (1 - 1-dose 75+ series) 2021 COVID-19 VACCINE ( - 2023-2 5 season) 2024 INFLUENZA VACCINE (#1) 2024 DEPRESSION SCREENING 08/16/2024 HEPATITIS B VACCINE Aged Out No longe r eligible based on patient's age to complete this topic HIB VACCINE Aged Out No longer eligi ble based on patient's age to complete this topic HPV VACCINE Aged Out No longer eligi ble based on patient's age to complete this topic MENINGOCOCCAL (Group B) VACCINE Aged Out No longer eligible based on patient's age to complete this topic MENINGOCOCCAL VACCINE Aged Out No austyn zoe eligible based on patient's age to complete this topic
--- OUTSIDE RECORDS SUMMARY | 2024-09-07 06:42 | XMS_ITS | Referral Summary ---
Author Organization [facility] Address [address] [facility] [place] [address] Care Team Providers Care Autism Specialist Name Role Phone Unavailable Primary Care Provider Unavailabl e Source Comments [facility],non-owned Affiliates and Associated Physician Practices is amultiple site organization consisting of ambulatory clinics and hospital sitesin [place], [place], [place] and [place]. This disclosure is being madepursuant to the Care Everywhere program and may not contain all information available regarding this patient. Last updated 18.[facility] Allergies No known active allergies Medications * [...] Comments Blood Pressure 154/90 07/23/2017 4:57 PM POLICE RECORDS CLERK Pulse 88 07/23/2017 4:57 PM POLICE RECORDS CLERK Temperature 36.6 ??C (97.9 ??F) 07/23/2017 4:57 PM CS T Respiratory Rate 17 07/23/2017 4:57 PM POLICE RECORDS CLERK Oxygen Saturation 96% 07/23/2017 4:57 PM POLICE RECORDS CLERK Inhaled Oxygen Concentration - - Weight 59 kg (130 lb) 07/23/2017 4:57 PM POLICE RECORDS CLERK Height 147.3 cm (4' 10 ) 07/23/2017 4:57 PM POLICE RECORDS CLERK Body Mass Index 27.17 07/23/2017 4:57 PM POLICE RECORDS CLERK Plan of Treatment Not on file Administered Medications
== END 2024-09-01 11:53 | disposition home or self-care (01) ==
PROVIDERS: PCP Internal Medicine; Visit Provider Internal Medicine
DX: M19.012 Primary osteoarthritis, left shoulder (principal)
CPT/HCPCS: 73030